=== PATIENT | female | born 1970 | race Caucasian/White ===

== ENCOUNTER → 2017-03-12 15:22 | Outpatient (CLI) | payer BC, SELFPAY ==
[2017-03-12 16:26] LABS: Free Thyroxine Index 3.7 ug/dL (5.93-13.13); T4 (Thyroxine) 11.2 ug/dl (4.7-13.3); Thyroid Stimulating Hormone 1.27 uIU/ml (0.358-3.740); Triiodothryronine (T3) Uptake 33 % (31-39)
== END ==
PROVIDERS: Visit Provider Nurse Practitioner Obstetrics & Gynecology
DX: E03.9 Hypothyroidism, unspecified (principal); R53.82 Chronic fatigue, unspecified
CPT/HCPCS: 36415; 84436; 84443; 84479

== ENCOUNTER 2017-03-16 07:11 | Day surgery (SDC) | payer BC, SELFPAY ==
[2017-03-13 10:47] VITALS: BP 144/85; PULSE 83; RESP 20; TEMP 36.7; O2SAT 98; BMI 34.0
[2017-03-16] VITALS (10 sets, daily range): BP systolic 114–144; BP diastolic 77–92; PULSE 83–93; RESP 12–28; TEMP 36.6; O2SAT 95–100
[2017-03-16 08:00] LABS: Urine Pregnancy, HCG Qual. Negative (Negative)
--- NOTE | 2017-03-16 08:37 | SUR.PREOP ---
patient up to bathroom then returned to bay safely. patient stable with no s/s of distress noted.
--- NOTE | 2017-03-16 09:45 | HMH.PROC ---
[facility] Procedure Note Procedure Note:: Colonoscopy Procedure Report: Colonoscopy with cold snare polypectomy Endoscopist: Robert Bernabe II, MD Referring physician: Linda ALEXIS Date of Procedure: March 16, 2017 Equipment: Olympus 180 variable stiffness pediatric colonoscope Sedation: Fentanyl 200 mg IV/ Versed 9 mg IV Indication: Mrs. Hsieh is a 46-year-old female who is here for initial screening colonoscopy. She had a paternal first cousin with colon cancer in her 40s. Her maternal grandmother had colon cancer in her mid 60s. Her paternal grandfather had prostate cancer. The patient did have some hemorrhoidal bleeding a year ago. She does have some bowel irregularity with IBS and states that she alternates with constipation and then loose bowel movements. She does get some abdominal discomfort with this. She reports no change in bowel habits or weight loss. Procedure: Prior to the procedure, a history and physical exam was performed, and patient's medications and allergies were reviewed. The risks, benefits and alternatives of the sedation and procedure were discussed with the patient. All questions were answered and informed consent was obtained. The patient was brought to the procedure room. Patient identification and proposed procedure were verified by the physician and the nurse. The patient was placed in a left lateral decubitus position and the scope was passed under direct vision. Throughout the procedure, the patient's blood pressure, pulse, and oxygen saturations were monitored continuously. The colonoscopy was accomplished without difficulty. The patient tolerated the procedure well. Findings: On digital rectal examination there was normal rectal tone. There were no external hemorrhoids. The colonoscope was introduced through the anal canal to the rectum and advanced to the cecum. The ileocecal valve and appendiceal orifice were identified. The scope was advanced a short distance into the ileum which appeared grossly normal. The scope was then withdrawn into the colon. There were 2 colon polyps identified in the sigmoid ?1 and rectosigmoid ?1. These ranged in size from 5 and 8 mm and were all removed via cold snare polypectomy. There were scattered diverticuli throughout the descending and sigmoid colon (LEFT colon). The rectum itself was normal. Upon retroflexion within the rectum there were grade 1 internal hemorrhoids. Impression: 1. Colonic polyps ?2 2. Left-sided diverticulosis 3. Grade 1 internal hemorrhoids Plan: I will follow up the polyp pathology and recommend repeat colonoscopy again in 5 years based upon the polyp histology. I would encourage dietary measures, probiotic therapy and fiber supplementation on a long-term daily maintenance basis.
--- NOTE | 2017-03-16 09:48 | P.PCN_ITS ---
[facility] Procedure Note Procedure Note:: Colonoscopy Procedure Report: Colonoscopy with cold snare polypectomy Endoscopist: Robert Bernabe II, MD Referring physician: Linda AELXIS Date of Procedure: March 16, 2017 Equipment: Olympus 180 variable stiffness pediatric colonoscope Sedation: Fentanyl 200 mg IV/ Versed 9 mg IV Indication: Mrs. Hsieh is a 46-year-old female who is here for initial screening colonoscopy. She had a paternal first cousin with colon cancer in her 40s. Her maternal grandmother had colon cancer in her mid 60s. Her paternal grandfather had prostate cancer. The patient did have some hemorrhoidal bleeding a year ago. She does have some bowel irregularity with IBS and states that she alternates with constipation and then loose bowel movements. She does get some abdominal discomfort with this. She reports no change in bowel habits or weight loss. Procedure: Prior to the procedure, a history and physical exam was performed, and patient' s medications and allergies were reviewed. The risks, benefits and alternatives of the sedation and procedure were discussed with the patient. All questions were answered and informed consent was obtained. The patient was brought to the procedure room. Patient identification and proposed procedure were verified by the physician and the nurse. The patient was placed in a left lateral decubitus position and the scope was passed under direct vision. Throughout the procedure, the patient's blood pressure, pulse, and oxygen saturations were monitored continuously. The colonoscopy was accomplished without difficulty. The patient tolerated the procedure well. Findings: On digital rectal examination there was normal rectal tone. There were no external hemorrhoids. The colonoscope was introduced through the anal canal to the rectum and advanced to the cecum. The ileocecal valve and appendiceal orifice were identified. The scope was advanced a short distance into the ileum which appeared grossly normal. The scope was then withdrawn into the colon. There were 2 colon polyps identified in the sigmoid ?1 and rectosigmoid ?1. These ranged in size from 5 and 8 mm and were all removed via cold snare polypectomy. There were scattered diverticuli throughout the descending and sigmoid colon (LEFT colon). The rectum itself was normal. Upon retroflexion within the rectum there were grade 1 internal hemorrhoids. Impression: 1. Colonic polyps ?2 2. Left-sided diverticulosis 3. Grade 1 internal hemorrhoids Plan: I will follow up the polyp pathology and recommend repeat colonoscopy again in 5 years based upon the polyp histology. I would encourage dietary measures, probiotic therapy and fiber supplementation on a long-term daily maintenance basis.
== END 2017-03-16 10:45 | disposition home or self-care (01) ==
LOC: OUTP 07:12
PROVIDERS: PCP Nurse Practitioner; Visit Provider Internal Medicine Gastroenterology
PROC: 0DJD8ZZ Inspection of Lower Intestinal Tract, Via Natural or Artificial Opening Endoscopic (ICD-10-PCS; CPT 45378; principal; 2017-03-16 08:00)
DX: Z12.11 Encounter for screening for malignant neoplasm of colon (principal); K63.5 Polyp of colon; K57.30 Diverticulosis of large intestine without perforation or abscess without bleeding; K64.0 First degree hemorrhoids
CPT/HCPCS: 45380; 81025; 99152

== ENCOUNTER → 2017-07-19 07:51 | Outpatient (CLI) | payer BC, SELFPAY ==
[2017-07-19 09:08] LABS: Free T4 (Free Thyroxine) 1.29 ng/dl (0.76-1.46); Thyroid Stimulating Hormone 1.98 uIU/ml (0.358-3.740)
== END ==
PROVIDERS: PCP Nurse Practitioner; Visit Provider Nurse Practitioner Obstetrics & Gynecology
DX: E06.3 Autoimmune thyroiditis (principal); E03.9 Hypothyroidism, unspecified; I34.1 Nonrheumatic mitral (valve) prolapse; I10 Essential (primary) hypertension
CPT/HCPCS: 84439; 84443

== ENCOUNTER → 2017-10-26 13:48 | Outpatient (CLI) | payer BC, SELFPAY ==
--- NOTE | 2017-10-26 13:54 | US_ITS ---
US thyroid HISTORY: ITS.REASON: HASHIMOTOS DISEASE ORDERING PHYSICIAN: Xiomara Kaplan PATIENT AGE: 47 years Comparison: None FINDINGS: The right lobe measures 4.8 x 1.3 x 1.7 cm. There is heterogeneous echogenicity as before with no discrete nodule. The left lobe measures 3.9 x 1.1 x 1.2 cm also showing heterogeneous echogenicity. No discrete nodule. The isthmus has an unremarkable appearance. IMPRESSION: Mildly enlarged thyroid gland with heterogeneous echogenicity. No discrete mass. No significant change
== END ==
PROVIDERS: PCP Nurse Practitioner; Visit Provider Nurse Practitioner
DX: E06.3 Autoimmune thyroiditis (principal)
CPT/HCPCS: 76536

== ENCOUNTER → 2017-10-29 19:00 | Outpatient (REF) | payer BC, SELFPAY ==
[2017-11-02 07:02] LABS: Neisseria gonorrhoeae, NAA Negative (Negative)
== END ==
LOC: LAB 19:00
PROVIDERS: Visit Provider Nurse Practitioner Obstetrics & Gynecology
DX: N72 Inflammatory disease of cervix uteri (principal)
CPT/HCPCS: 87491; 87591

== ENCOUNTER → 2018-02-08 13:03 | Outpatient (CLI) | payer BC, SELFPAY ==
[2018-02-08 16:33] LABS: Free Thyroxine Index 3.3 ug/dL (5.93-13.13); T4 (Thyroxine) 10.4 ug/dl (4.7-13.3); Thyroid Stimulating Hormone 1.51 uIU/ml (0.358-3.740); Triiodothryronine (T3) Uptake 32 % (31-39)
[2018-02-09 14:02] LABS: Vitamin D 25 Hydroxy 74.3 ng/mL (30.0-100.0)
[2018-02-09 14:03] LABS: Estradiol <5.0 pg/mL (.); FSH 25.5 mIU/mL (.); Triiodothyronine (T3) Free 3.4 pg/mL (2.0-4.4)
[2018-02-10 12:09] LABS: Anti-Centromere B Antibodies <0.2 AI (0.0-0.9); Anti-Jo-1 <0.2 AI (0.0-0.9); Anti-Smith Antibody <0.2 AI (0.0-0.9); Antichromatin Antibodies 0.2 AI (0.0-0.9); Antiscleroderma-70 Antibodies <0.2 AI (0.0-0.9); RNP Antibodies 0.3 AI (0.0-0.9); Sjogren's Anti-SS-A <0.2 AI (0.0-0.9); Sjogren's Anti-SS-B <0.2 AI (0.0-0.9)
[2018-02-10 21:28] LABS: Anti-DNA (DS) Ab Qn 8 IU/mL (0-9)
== END ==
PROVIDERS: PCP Nurse Practitioner; Visit Provider Nurse Practitioner Obstetrics & Gynecology
DX: E03.9 Hypothyroidism, unspecified (principal); E06.3 Autoimmune thyroiditis; N95.1 Menopausal and female climacteric states; R53.82 Chronic fatigue, unspecified
CPT/HCPCS: 36415; 82652; 82670; 83001; 83002; 84436; 84443; 84479; 84481; 86225; 86235

== ENCOUNTER → 2018-02-20 13:22 | Outpatient (CLI) | payer BC, SELFPAY | PROVIDERS: PCP Nurse Practitioner; Visit Provider Nurse Practitioner Obstetrics & Gynecology | DX: R68.89 Other general symptoms and signs (principal) | CPT/HCPCS: 87275; 87276 ==

== ENCOUNTER → 2018-02-22 13:09 | Outpatient (CLI) | payer BC, SELFPAY ==
--- NOTE | 2018-02-22 13:23 | XR_ITS ---
XR foot wt bearing RT 3V HISTORY: Right foot pain ITS.REASON: pain ORDERING PHYSICIAN: Bela Fallon DPM PATIENT AGE: 47 years COMPARISON: None FINDINGS: No fracture or dislocation. No lytic or blastic change. There is normal mineralization.. The joint spaces are well-preserved. No significant degenerative/arthritic changes. No erosive changes evident. IMPRESSION: Negative, no acute finding
--- NOTE | 2018-02-22 13:23 | XR_ITS ---
XR foot wt bearing LT 3V HISTORY: Bilateral foot pain, left foot pain ITS.REASON: pain ORDERING PHYSICIAN: Bela Fallon DPM PATIENT AGE: 47 years COMPARISON: None FINDINGS: No fracture or dislocation. No lytic or blastic change. There is normal mineralization.. The joint spaces are well-preserved. No significant degenerative/arthritic changes. No erosive changes evident. There is a small calcaneal spur IMPRESSION: Negative, no acute finding
== END ==
PROVIDERS: PCP Family Medicine; Visit Provider Podiatrist
DX: M79.672 Pain in left foot (principal); M79.671 Pain in right foot
CPT/HCPCS: 73630

== ENCOUNTER → 2018-07-18 07:27 | Outpatient (CLI) | payer BC, SELFPAY ==
[2018-07-18 09:11] LABS: Free T4 (Free Thyroxine) 1.11 ng/dl (0.76-1.46); T4 (Thyroxine) 9.5 ug/dl (4.7-13.3); Thyroid Stimulating Hormone 0.13 uIU/ml (0.358-3.740); Triiodothryronine (T3) Uptake 32 % (31-39)
[2018-07-19 07:35] LABS: Estradiol <5.0 pg/mL (.); FSH 33.1 mIU/mL (.); LH 33.3 mIU/mL (.); Triiodothyronine (T3) Free 3.4 pg/mL (2.0-4.4)
[2018-07-24 03:27] LABS: Anti-DNA (DS) Ab Qn 7; RNP Antibodies 0.3
[2018-07-24 03:28] LABS: Anti-Centromere B Antibodies <0.2; Anti-Jo-1 <0.2; Anti-Smith Antibody <0.2; Antichromatin Antibodies 0.2; Antiscleroderma-70 Antibodies <0.2; Sjogren's Anti-SS-A <0.2; Sjogren's Anti-SS-B <0.2
[2018-07-24 03:29] LABS: Antinuclear Antibodies (ANA) NEGATIVE
== END ==
PROVIDERS: Visit Provider Nurse Practitioner Obstetrics & Gynecology
DX: E06.3 Autoimmune thyroiditis (principal); E78.5 Hyperlipidemia, unspecified; I10 Essential (primary) hypertension; I34.1 Nonrheumatic mitral (valve) prolapse; R06.02 Shortness of breath
CPT/HCPCS: 36415; 82652; 82670; 83001; 83002; 84436; 84439; 84443; 84479; 84481; 86038; 86225; 86235

== ENCOUNTER → 2018-07-22 16:34 | Outpatient (CLI) | payer BC, SELFPAY ==
--- NOTE | 2018-07-22 16:39 | XR_ITS ---
EXAM: XR cervical spine 5V HISTORY: ITS.REASON: HASHIMOTOS DISEAS, ACUTE LEFT SHOULDER PAIN, NECK PAIN ORDERING PHYSICIAN: Xiomara Kaplan APRN PATIENT AGE: 47 years COMPARISON: None FINDINGS: Normal alignment. No fracture or dislocation. No lytic or blastic change. No significant degenerative change. The disc spaces are preserved. IMPRESSION: No acute finding
--- NOTE | 2018-07-22 16:39 | XR_ITS ---
XR shoulder LT min 2V HISTORY: ITS.REASON: HASHIMOTOS DISEAS, ACUTE LEFT SHOULDER PAIN, NECK PAIN ORDERING PHYSICIAN: Xiomara Kaplan APRN PATIENT AGE: 47 years Comparison: None FINDINGS: No fracture or dislocation. No lytic or blastic change. There is normal mineralization. The joint spaces are well-preserved. No significant degenerative/arthritic changes. No erosive changes evident. IMPRESSION: Negative, no acute finding
== END ==
PROVIDERS: PCP Nurse Practitioner; Visit Provider Nurse Practitioner
DX: M25.512 Pain in left shoulder (principal); M54.2 Cervicalgia; R53.83 Other fatigue; R60.1 Generalized edema; E06.3 Autoimmune thyroiditis
CPT/HCPCS: 72050; 73030

== ENCOUNTER → 2018-07-25 08:36 | Outpatient (CLI) | payer BC, SELFPAY ==
--- NOTE | 2018-07-25 08:40 | XR_ITS ---
XR ankle wt bearing LT min 3V HISTORY: ITS.REASON: pain ORDERING PHYSICIAN: Bela Fallon DPM PATIENT AGE: 47 years Comparison: None FINDINGS: No fracture or dislocation. No lytic or blastic change. There is normal mineralization.. The joint spaces are well-preserved. No significant degenerative/arthritic changes. No erosive changes evident. IMPRESSION: Negative ankle, no acute finding
== END ==
PROVIDERS: PCP Nurse Practitioner; Visit Provider Podiatrist
DX: M79.605 Pain in left leg (principal)
CPT/HCPCS: 73610

== ENCOUNTER → 2018-08-07 08:11 | Outpatient (CLI) | payer BC, SELFPAY ==
--- NOTE | 2018-08-07 08:12 | MR_ITS ---
MR ankle LT wo/w con CLINICAL INDICATION: Medial ankle pain, soft tissue mass ITS.REASON: soft tissue mass ORDERING PHYSICIAN: Bela Fallon DPM PATIENT AGE: 47 years Comparison: 07/25/2018 TECHNIQUE: Multiplanar multiecho sequences are performed without and with gadolinium enhancement. A marker is placed along the medial aspect of the ankle and reported area of the soft tissue mass. Pre- and postenhanced fat sat images show no obvious soft tissue mass. There is a prominent vascular structure at this area which may be related to a prominent draining vein or varicosities. This is directly deep to the placed marker. No other enhancing structures are identified. Hypointensity is present at the distal aspect of the posterior tibialis tendon and its insertion on the navicular with an apparent enlargement area of the tendon here. This may only be related to partial volume averaging from the posterior tibialis tendon, sprain ligament, and tibial navicular ligament which may give the appearance of the thickened posterior distal tibialis tendon. If there is clinical suspicion of posterior tibial pathology then dedicated foot MRI may be of further value. No fracture or dislocation. The talar dome has an unremarkable appearance. No ligamentous abnormalities. IMPRESSION: 1. Palpable abnormality corresponds to a prominent penetrating vein 2. Thickened appearance of the distal aspect of the posterior tibialis tendon which may represent artifact from that tendon, spring ligament, and tibionavicular ligament which can cause this pseudothickening.
== END ==
PROVIDERS: PCP Nurse Practitioner; Visit Provider Podiatrist
DX: M25.579 Pain in unspecified ankle and joints of unspecified foot (principal); R22.42 Localized swelling, mass and lump, left lower limb
CPT/HCPCS: 73723; A9576

== ENCOUNTER → 2018-12-12 08:01 | Outpatient (CLI) | payer BC, SELFPAY ==
[2018-12-12 08:23] LABS: Basophils # 0.1 K/mm3 (0-0.2); Basophils % 0.6 % (0.1-2.0); Eosinophils # 0.1 K/mm3 (0.0-0.4); Eosinophils % 1.2 % (0.1-12.0); Hemoglobin 14.4 g/dL (12.2-16.2); Lymphocytes % 27.2 % (10-50); Mean Corpuscular HGB Conc 32.1 g/dL (31.8-35.4); Mean Corpuscular Volume 87.4 fl (81-99); Mean Platelet Volume 7.8 fl (7.4-10.4); Monocytes # 0.3 K/mm3 (0.1-1.0); Monocytes % 4.3 % (1.7-9.3); Neutrophils # 4.9 K/mm3 (1.8-7.8); Neutrophils % 66.6 % (37.0-80.0); Platelet Count 355 K/mm3 (142-424); Red Blood Count 5.14 M/mm3 (4.20-5.40); Red Cell Distribution Width 12.8 % (11.5-17.5); White Blood Count 7.3 K/mm3 (4.8-10.8)
[2018-12-12 10:07] LABS: Alanine Aminotransferase 14 U/L (12-78); Albumin Level 3.5 gm/dL (3.4-5.0); Albumin/Globulin Ratio 0.9 (1.1-1.8); Alkaline Phosphatase 81 U/L (46-116); Anion Gap 14.1 mEq/L (5-15); Aspartate Amino Transferase 8 U/L (15-37); Bilirubin,Total 0.4 mg/dL (0.2-1.0); Blood Urea Nitrogen 14 mg/dL (7-18); Calcium 9.8 mg/dL (8.5-10.1); Carbon Dioxide 25 mmol/L (21.0-32.0); Chloride 105 mmol/L (98-107); Cholesterol 175 mg/dL (140-200); Estimated Glomerular Filt Rate 90 ml/min (>60); GFR (African American) 109 ML/MIN (>60); Globulin 3.8 gm/dl (1.3-3.2); Glucose 98 mg/dL (74-106); HDL Cholesterol 44 mg/dL (29-89); LDL Cholesterol 91 mg/dL (0-130); Potassium 4.1 mmoL/L (3.5-5.1); Sodium 140 mmol/L (136-145); Total Protein,Serum 7.3 gm/dL (6.4-8.2); Triglycerides 200 mg/dL (30-200); VLDL Cholesterol 40 mg/dL (0-40)
[2018-12-12 10:18] LABS: Free T4 (Free Thyroxine) 1.25 ng/dl (0.76-1.46); Thyroid Stimulating Hormone 0.39 uIU/ml (0.358-3.740)
[2018-12-13 06:09] LABS: Prolactin 23.9 ng/mL (4.8-23.3)
[2018-12-13 07:40] LABS: Estradiol <5.0 pg/mL (.); FSH 33.1 mIU/mL (.); LH 24.9 mIU/mL (.)
== END ==
PROVIDERS: Otolaryngology; Visit Provider Nurse Practitioner Obstetrics & Gynecology
DX: N95.1 Menopausal and female climacteric states (principal); E03.9 Hypothyroidism, unspecified; E78.5 Hyperlipidemia, unspecified; R53.83 Other fatigue; E06.3 Autoimmune thyroiditis; R59.9 Enlarged lymph nodes, unspecified; M54.2 Cervicalgia
CPT/HCPCS: 36415; 80053; 80061; 82670; 83001; 83002; 84146; 84439; 84443; 85025

== ENCOUNTER → 2018-12-26 13:19 | Outpatient (CLI) | payer BC, SELFPAY ==
[2018-12-26 14:36] LABS: Monoscreen (Rapid) Negative (Negative)
== END ==
PROVIDERS: Visit Provider Nurse Practitioner Obstetrics & Gynecology
DX: R50.9 Fever, unspecified (principal); R51 Headache; R53.83 Other fatigue; R59.9 Enlarged lymph nodes, unspecified
CPT/HCPCS: 36415; 86318

== ENCOUNTER → 2018-12-27 08:41 | Outpatient (CLI) | payer BC, SELFPAY ==
--- NOTE | 2018-12-27 08:42 | MR_ITS ---
PROCEDURE: MR HEAD/BRAIN WO/W CON CLINICAL INDICATION: Pituitary Adenoma Galactorrhea, headache, visual changes with fatigue COMPARISON: No exams were available for comparison TECHNIQUE: Routine multiplanar multi echo sequences are performed without and with gadolinium enhancement.. Additional thin section pre and post dynamic enhanced images are obtained of the pituitary in the coronal plane FINDINGS: No midline shift, mass effect, intracranial hemorrhage, or hydrocephalus is evident. No evidence of acute infarction. The cerebellopontine angles, cerebellum, and brainstem are unremarkable. There is normal tucker-white matter differentiation with no abnormal white matter signal intensity apparent. No enhancing lesions are evident. The hippocampal gyri are unremarkable in the temporal horns are symmetric. Dynamic enhanced images of the pituitary initially show decreased intensity in the central to slightly left aspect of the pituitary gland. This becomes more even with the rest of the pituitary gland on the delayed images. This area measures approximately 4 mm. There is mild deviation of the pituitary stalk and there is mild prominence of the pituitary gland with a superior convex margin. No other significant anomalies are evident. IMPRESSION: Mildly prominent pituitary gland with superior convex margin. The initial dynamic enhanced images suggest a small area of non enhancement inferiorly and on the left. This is of questionable clinical significance but could be due to small microadenoma at 4 mm. Recommend six-month follow-up to confirm stability. Dictated by: Pedrito Becker MD 12/27/2018 16:51 Electronically signed by Pedrito Becker MD in [place] 12/28/2018 08:50
--- NOTE | 2018-12-27 10:13 | HMH.ITSHM ---
Current Home Medications as stated by this patient Elda Hsieh or security representative. []BISOPROLOL LEVOTHYROXINE ASPIRIN VITAMIN B12 OMPRAZOLE
== END ==
PROVIDERS: PCP Nurse Practitioner; Visit Provider Nurse Practitioner Obstetrics & Gynecology
DX: D35.2 Benign neoplasm of pituitary gland (principal); E22.9 Hyperfunction of pituitary gland, unspecified
CPT/HCPCS: 70553; A9576

== ENCOUNTER → 2019-06-20 09:34 | Outpatient (CLI) | payer BC, SELFPAY ==
--- NOTE | 2019-06-20 09:44 | CA_ITS ---
APPROVED REPORT Left Lower Extremity Venous Study for DVT. Typing Teacher: CT Indications DVT of Lower Extremity: Left Vein Imaging CFV (L): compressive, spontaneous, phasic, augmentation SFJ (L): compressive, spontaneous, phasic, augmentation FEM (L): compressive, spontaneous, phasic, augmentation POP (L): compressive, spontaneous, phasic, augmentation DFV (L): compressive, spontaneous, phasic, augmentation PTV (L): compressive, spontaneous, phasic, augmentation GSV (L): compressive, spontaneous, phasic, augmentation SSV (L): compressive, spontaneous, phasic, augmentation Peroneals (L):compressive, spontaneous, phasic, augmentation GAS (L): compressive, spontaneous, phasic, augmentation Findings LLE negative for DVT/SVT. Vessels fully compressible. No reflux noted Conclusion No evidence of DVT or superficial thrombophlebitis in the veins scanned of the left lower extremity. Electronically signed by : Pedrito Becker MD 06/20/2019 17:08:55
== END ==
PROVIDERS: PCP Family Medicine; Visit Provider Nurse Practitioner Obstetrics & Gynecology
DX: M79.662 Pain in left lower leg (principal)
CPT/HCPCS: 93971

== ENCOUNTER → 2019-08-20 07:41 | Outpatient (CLI) | payer BC, SELFPAY ==
[2019-08-20 08:21] LABS: Basophils # 0.6 K/mm3 (0-0.2); Basophils % 6.5 % (0.1-2.0); Eosinophils # 0.1 K/mm3 (0.0-0.4); Eosinophils % 1.6 % (0.1-12.0); Hematocrit 47.5 % (37.0-47.0); Lymphocytes # 2.9 K/mm3 (0.7-4.5); Lymphocytes % 33.8 % (10-50); Mean Corpuscular HGB Conc 31.6 g/dL (31.8-35.4); Mean Corpuscular Hemoglobin 29.8 pg (27.0-31.2); Mean Corpuscular Volume 94.5 fl (81-99); Mean Platelet Volume 11.2 fl (7.4-10.4); Monocytes # 0.4 K/mm3 (0.1-1.0); Monocytes % 4.2 % (1.7-9.3); Neutrophils # 5.1 K/mm3 (1.8-7.8); Neutrophils % 60.5 % (37.0-80.0); Platelet Count 329 K/mm3 (142-424); Red Blood Count 5.03 M/mm3 (4.20-5.40); White Blood Count 8.5 K/mm3 (4.8-10.8)
[2019-08-20 10:24] LABS: Chloride 103 mmol/L (98-107); Potassium 4.4 mmoL/L (3.5-5.1); Sodium 136 mmol/L (136-145)
[2019-08-20 10:27] LABS: Alanine Aminotransferase 20 U/L (12-78); Albumin Level 4.2 g/dl (3.5-5.0); Albumin/Globulin Ratio 1.3 (1.1-1.8); Alkaline Phosphatase 79 U/L (38-126); Anion Gap 14.4 mEq/L (5-15); Aspartate Amino Transferase 25 U/L (14-36); Bilirubin,Total 0.6 mg/dl (0.2-1.3); Blood Urea Nitrogen 16 mg/dl (7-17); Calcium 10.4 mg/dl (8.4-10.2); Carbon Dioxide 23 mmol/L (22.0-30.0); Cholesterol 195 mg/dl (140-200); Estimated Glomerular Filt Rate 90 ml/min (>60); GFR (African American) 109 ML/MIN (>60); Globulin 3.3 g/dL (1.3-3.2); Glucose 95 mg/dl (74-100); Total Protein,Serum 7.5 g/dl (6.3-8.2); Triglycerides 404 mg/dl (30-150)
[2019-08-20 10:28] LABS: Chol/HDL Ratio 4.2 (1-3.5); HDL Cholesterol 46 mg/dl (40-60)
[2019-08-20 10:39] LABS: Direct LDL Cholesterol 102.08 mg/dL (100-129)
[2019-08-20 10:46] LABS: Free T4 (Free Thyroxine) 1.16 ng/dl (0.78-2.19)
[2019-08-20 10:55] LABS: Coronavirus 19 IgG Antibody Negative (Negative); Coronavirus 19 IgM Antibody Negative (Negative)
[2019-08-20 11:00] LABS: Thyroid Stimulating Hormone 2.83 uIU/mL (0.465-4.68)
[2019-08-21 09:57] LABS: Prolactin 25.9 ng/mL (4.8-23.3)
[2019-08-21 11:34] LABS: Estradiol <5.0 pg/mL (.); FSH 31.9 mIU/mL (.); LH 29.3 mIU/mL (.)
== END ==
PROVIDERS: PCP Nurse Practitioner Family; Visit Provider Nurse Practitioner Obstetrics & Gynecology
DX: E06.3 Autoimmune thyroiditis (principal); E03.9 Hypothyroidism, unspecified; N64.52 Nipple discharge; R53.82 Chronic fatigue, unspecified
CPT/HCPCS: 36415; 80053; 80061; 82670; 83001; 83002; 84146; 84439; 84443; 85025; 86328

== ENCOUNTER → 2019-08-22 08:41 | Outpatient (CLI) | payer BC, SELFPAY | PROVIDERS: PCP Family Medicine; Visit Provider Nurse Practitioner Family | DX: R06.02 Shortness of breath (principal); I34.0 Nonrheumatic mitral (valve) insufficiency; I34.1 Nonrheumatic mitral (valve) prolapse | CPT/HCPCS: 93306 ==

== ENCOUNTER → 2020-03-26 08:07 | Outpatient (CLI) | payer BC, SELFPAY ==
[2020-03-26 09:06] LABS: Basophils % 0.9 % (0.1-2.0); Eosinophils # 0.1 K/mm3 (0.0-0.4); Eosinophils % 1.5 % (0.1-12.0); Hematocrit 42.2 % (37.0-47.0); Hemoglobin 13.7 g/dL (12.2-16.2); Lymphocytes # 1.9 K/mm3 (0.7-4.5); Lymphocytes % 40.6 % (10-50); Mean Corpuscular HGB Conc 32.6 g/dL (31.8-35.4); Mean Corpuscular Hemoglobin 28.1 pg (27.0-31.2); Mean Corpuscular Volume 86.3 fl (81-99); Mean Platelet Volume 7.6 fl (7.4-10.4); Monocytes # 0.3 K/mm3 (0.1-1.0); Monocytes % 5.2 % (1.7-9.3); Neutrophils # 2.5 K/mm3 (1.8-7.8); Neutrophils % 51.8 % (37.0-80.0); Platelet Count 302 K/mm3 (142-424); Red Blood Count 4.89 M/mm3 (4.20-5.40); Red Cell Distribution Width 12.8 % (11.5-17.5); White Blood Count 4.7 K/mm3 (4.8-10.8)
[2020-03-26 09:25] LABS: Chloride 106 mmol/L (98-107); Sodium 141 mmol/L (136-145)
[2020-03-26 09:26] LABS: Alanine Aminotransferase 42 U/L (12-78); Alkaline Phosphatase 96 U/L (38-126); Aspartate Amino Transferase 40 U/L (14-36); Bilirubin,Direct 0.2 mg/dl (0.0-0.4); Bilirubin,Indirect 0.4 mg/dL (0.0-0.9); Bilirubin,Total 0.6 mg/dl (0.2-1.3); Bilirubin,Unconjugated 0.4 mg/dL (0.0-1.1)
[2020-03-26 09:26] LABS: Potassium 4.6 mmoL/L (3.5-5.1)
[2020-03-26 09:27] LABS: Albumin Level 4.3 g/dl (3.5-5.0); Chol/HDL Ratio 4.9 (1-3.5); Cholesterol 190 mg/dl (140-200); HDL Cholesterol 39 mg/dl (40-60); Total Protein,Serum 7.7 g/dl (6.3-8.2); Triglycerides 390 mg/dl (30-150); VLDL Cholesterol 78 mg/dL (0-40)
[2020-03-26 09:28] LABS: Alanine Aminotransferase 43 U/L (12-78); Albumin Level 4.4 g/dl (3.5-5.0); Albumin/Globulin Ratio 1.3 (1.1-1.8); Alkaline Phosphatase 95 U/L (38-126); Anion Gap 13.6 mEq/L (5-15); Aspartate Amino Transferase 41 U/L (14-36); Bilirubin,Total 0.7 mg/dl (0.2-1.3); Blood Urea Nitrogen 20 mg/dl (7-17); Carbon Dioxide 26 mmol/L (22.0-30.0); Estimated Glomerular Filt Rate 89 ml/min (>60); GFR (African American) 108 ML/MIN (>60); Globulin 3.4 g/dL (1.3-3.2); Glucose 106 mg/dl (74-100); Total Protein,Serum 7.8 g/dl (6.3-8.2)
[2020-03-26 09:38] LABS: Direct LDL Cholesterol 83.43 mg/dL (100-129)
[2020-03-26 09:41] LABS: Coronavirus 19 IgG Antibody Positive (Negative); Coronavirus 19 IgM Antibody Negative (Negative)
== END ==
PROVIDERS: Nurse Practitioner Obstetrics & Gynecology; Visit Provider Internal Medicine Cardiovascular Disease
DX: R07.9 Chest pain, unspecified (principal); R10.11 Right upper quadrant pain; E78.5 Hyperlipidemia, unspecified; I10 Essential (primary) hypertension
CPT/HCPCS: 36415; 80053; 80061; 80076; 85025; 86328

== ENCOUNTER → 2020-03-30 14:10 | Outpatient (CLI) | payer BC, SELFPAY | PROVIDERS: PCP Nurse Practitioner; Visit Provider Nurse Practitioner Obstetrics & Gynecology | DX: Z20.822 Contact with and (suspected) exposure to COVID-19 (principal) | CPT/HCPCS: U0003 ==

== ENCOUNTER → 2020-04-05 12:38 | Outpatient (CLI) | payer BC, SELFPAY ==
--- NOTE | 2020-04-05 12:39 | CA_ITS ---
APPROVED REPORT EXAM: Comprehensive 2D, Doppler, and color-flow Echocardiogram Executor Of Estate: Mary Melgar RVT Ht: 5 ft 3 in Wt: 200lbs BSA: 1.93 BP: 132/64 mmHg Indications: SOA,CP,HTN,HLD,OBESITY TDS 2D Dimensions LVOT 2.25 cm (M/F) 1.5-2.5 LA Volume 22.10 mL LA Volume Index 11.45 mL/m2 (M/F) 16-34 M-Mode Dimensions RVDd 2.29 cm (0.9-2.6) LA Diam 3.44 cm (1.9-4.0) LVDd 3.97 cm (3.5-5.7) Ao Diam 3.16 cm (2.0-3.7) LVDs 2.75 cm (3.5-5.7) IVSd 1.32 cm (0.6-1.1) PWd 1.00 cm (0.6-1.1) EF (Teich) 58.90% FS 30.70% EDV (Teich) 68.80 mL TAPSE 1.70 (<1.7) ESV (Teich) 28.30 mL LV Diastology E Decel Time 263.00 (160-240 msec) E/A Ratio 0.7 MED E' 10.20 (< 7 cm/sec) E'/MED E' Ratio 5.46 (>14) LAT E' 9.10 (<10 cm/sec) E/LAT E' Ratio 6.12 (>14) Aortic Valve AO Peak GR. 5.70 mmHg Mitral Valve MV E Max Arsh. 56.00 (40-130 cm/s) MV A Velocity 77.00 (40-130 cm/s) E/A Ratio 0.73 MV Decel. Time 263.00 (160-240 ms) MV PHT 77.00 ms Pulmonary Valve PV Peak Velocity 71.00 (50-150 cm/s) Left Ventricle Left atrium is mildly enlarged, left ventricle is normal size, mild concentric left ventricular hypertrophy, visually estimated ejection fraction 55% with no regional wall motion abnormality, grade 1 diastolic dysfunction seen without tissue Doppler evidence of raise left atrial pressure. Right Ventricle Right atrium and right ventricle are normal size and contractility. Aortic Valve Aortic valve is minimally thickened and fibrosed, trileaflet aortic valve, there is no aortic stenosis or aortic insufficiency. Mitral Valve Mitral valve is grossly normal, there is trace mitral regurgitation. Tricuspid Valve Tricuspid valve is grossly normal, there is trace tricuspid regurgitation, tricuspid regurgitation jet velocity is inadequate for calculation of the right ventricular systolic pressure. Pulmonic Valve Pulmonic valve is poorly visualized. Great Vessels Aortic root is normal size. Pericardium No significant pericardial effusion noted. Conclusion 1. Normal left ventricular size, preserved left ventricular systolic function, visually estimated ejection fraction 55% with no regional wall motion abnormality, grade 1 diastolic dysfunction seen without tissue Doppler evidence of raise left atrial pressure. 2. Trace mitral and tricuspid regurgitation. 3. No significant pericardial effusion noted. Electronically signed by : Dewayne Bright, 04/05/2020 21:13:39
== END ==
PROVIDERS: PCP Nurse Practitioner; Visit Provider Internal Medicine Cardiovascular Disease
DX: R07.9 Chest pain, unspecified (principal); I10 Essential (primary) hypertension; E78.2 Mixed hyperlipidemia
CPT/HCPCS: 93306

== ENCOUNTER → 2020-04-14 08:04 | Outpatient (CLI) | payer SELFPAY ==
--- NOTE | 2020-04-14 08:04 | CT_ITS ---
PROCEDURE: CT HEART W CALCIUM SCORE CLINICAL HISTORY: Non-smoker Evaluate for CAD Chest and Back pain x2wks ago >repeat/misregistration? COMPARISON: No exams were available for comparison TECHNIQUE: Axial images obtained with sagittal and coronal reformats. All CT scans at the facility use one or more dose reduction, viz: automated exposure control, ma/kV adjustment per patient size (including targeted exams where dose is matched to indication, i.e. head), or iterative reconstruction technique. FINDINGS: Coronary artery calcium score is a miramontes. Mild calcific plaque burden with moderate cardiovascular disease risk IMPRESSION: Mild calcific plaque burden with moderate cardiovascular disease risk Dictated by: Pedrito Becker MD 04/16/2020 11:16 Pedrito Becker MD in [place] 04/16/2020 11:16
== END ==
PROVIDERS: PCP Nurse Practitioner; Visit Provider Internal Medicine Cardiovascular Disease
DX: Z13.6 Encounter for screening for cardiovascular disorders (principal); R07.89 Other chest pain; E78.2 Mixed hyperlipidemia; I10 Essential (primary) hypertension
CPT/HCPCS: 75571

== ENCOUNTER → 2020-04-16 07:28 | Outpatient (CLI) | payer SELFPAY | PROVIDERS: PCP Nurse Practitioner; Visit Provider Internal Medicine Cardiovascular Disease | DX: R07.9 Chest pain, unspecified (principal) ==

== ENCOUNTER → 2020-11-03 07:37 | Outpatient (CLI) | payer BC, SELFPAY ==
[2020-11-03 08:18] LABS: Basophils # 0.1 K/mm3 (0-0.2); Basophils % 1.2 % (0.1-2.0); Eosinophils # 0.1 K/mm3 (0.0-0.4); Eosinophils % 1.4 % (0.1-12.0); Hematocrit 44.8 % (37.0-47.0); Hemoglobin 14.8 g/dL (12.2-16.2); Lymphocytes # 2.3 K/mm3 (0.7-4.5); Lymphocytes % 38.3 % (10-50); Mean Corpuscular Hemoglobin 28.7 pg (27.0-31.2); Mean Platelet Volume 7.3 fl (7.4-10.4); Monocytes # 0.4 K/mm3 (0.1-1.0); Monocytes % 5.8 % (1.7-9.3); Neutrophils # 3.2 K/mm3 (1.8-7.8); Neutrophils % 53.4 % (37.0-80.0); Platelet Count 304 K/mm3 (142-424); Red Blood Count 5.15 M/mm3 (4.20-5.40); White Blood Count 6.1 K/mm3 (4.8-10.8)
[2020-11-03 08:59] LABS: Alanine Aminotransferase 32 U/L (12-78); Albumin Level 4.2 g/dl (3.5-5.0); Alkaline Phosphatase 138 U/L (38-126); Anion Gap 15.9 mEq/L (5-15); Aspartate Amino Transferase 28 U/L (14-36); Bilirubin,Direct 0.1 mg/dl (0.0-0.4); Bilirubin,Indirect 0.3 mg/dL (0.0-0.9); Bilirubin,Total 0.4 mg/dl (0.2-1.3); Bilirubin,Unconjugated 0.3 mg/dL (0.0-1.1); Blood Urea Nitrogen 21 mg/dl (7-17); Calcium 10.2 mg/dl (8.4-10.2); Carbon Dioxide 25 mmol/L (22.0-30.0); Chloride 104 mmol/L (98-107); Chol/HDL Ratio 5.2 (1-3.5); Cholesterol 188 mg/dl (140-200); Estimated Glomerular Filt Rate 89 ml/min (>60); GFR (African American) 108 ML/MIN (>60); Glucose 110 mg/dl (74-100); HDL Cholesterol 36 mg/dl (40-60); Potassium 3.9 mmoL/L (3.5-5.1); Sodium 141 mmol/L (136-145); Total Protein,Serum 7.6 g/dl (6.3-8.2); Triglycerides 413 mg/dl (30-150)
[2020-11-03 09:10] LABS: C-Reactive Protein 2.3 mg/L (0-4); Direct LDL Cholesterol 98.72 mg/dL (100-129)
[2020-11-03 09:17] LABS: 25-OH Vitamin D, Total 52.2 ng/mL (30-100)
[2020-11-03 09:30] LABS: Thyroid Stimulating Hormone 3.96 uIU/mL (0.465-4.68)
[2020-11-03 09:47] LABS: Vitamin B12 446 pg/mL (239-931)
[2020-11-03 10:00] LABS: Fibrinogen 325 mg/dL (229.9-363.5)
[2020-11-03 10:46] LABS: Hemoglobin A1C 5.8 % (4.0-6.0)
[2020-11-03 22:26] LABS: Free T4 (Free Thyroxine) 1.44 ng/dl (0.78-2.19)
[2020-11-04 08:32] LABS: DHEA-Sulfate 20.1 ug/dL (41.2-243.7); Progesterone <0.1 ng/mL (.); Prolactin 19.7 ng/mL (4.8-23.3)
[2020-11-04 14:19] LABS: Anti-Centromere B Antibodies <0.2 AI (0.0-0.9); Anti-DNA (DS) Ab Qn 4 IU/mL (0-9); Anti-Jo-1 <0.2 AI (0.0-0.9); Anti-Smith Antibody <0.2 AI (0.0-0.9); Antichromatin Antibodies <0.2 AI (0.0-0.9); Antiscleroderma-70 Antibodies <0.2 AI (0.0-0.9); RNP Antibodies 0.2 AI (0.0-0.9); Sjogren's Anti-SS-A <0.2 AI (0.0-0.9); Sjogren's Anti-SS-B <0.2 AI (0.0-0.9)
[2020-11-06 00:07] LABS: Estrogen 70 pg/mL (.)
[2020-11-07 16:36] LABS: Testosterone, Total, LC/MS 32.8 ng/dL (.); Testosterone,Free 0.9 pg/mL (0.0-4.2)
== END ==
PROVIDERS: Nurse Practitioner Obstetrics & Gynecology; Visit Provider Internal Medicine
DX: D89.89 Other specified disorders involving the immune mechanism, not elsewhere classified (principal); E03.9 Hypothyroidism, unspecified; E06.3 Autoimmune thyroiditis; E78.5 Hyperlipidemia, unspecified; I10 Essential (primary) hypertension; I34.0 Nonrheumatic mitral (valve) insufficiency; I34.1 Nonrheumatic mitral (valve) prolapse; R53.82 Chronic fatigue, unspecified
CPT/HCPCS: 36415; 80048; 80061; 80076; 82306; 82533; 82607; 82626; 82672; 83036; 84144; 84146; 84402; 84403; 84439; 84443; 85025; 85384; 86140; 86225; 86235

== ENCOUNTER → 2020-11-14 14:16 | Outpatient (CLI) | payer BC, SELFPAY ==
[2020-11-14 14:35] LABS: Influenza A, PCR Not Detected (NotDetected); Influenza B, PCR Not Detected (NotDetected)
[2020-11-14 15:20] LABS: Coronavirus 19, PCR Detected (NotDetected)
== END ==
PROVIDERS: PCP Family Medicine; Visit Provider Nurse Practitioner Obstetrics & Gynecology
DX: Z20.822 Contact with and (suspected) exposure to COVID-19 (principal); U07.1 COVID-19
CPT/HCPCS: C9803; U0003; U0005

== ENCOUNTER 2020-11-19 09:40 | Emergency (ER) | payer BC, SELFPAY ==
[2020-11-19] VITALS (14 sets, daily range): BP systolic 100–182; BP diastolic 52–118; PULSE 63–91; RESP 16–20; TEMP 36.7–36.8; O2SAT 90–95; BMI 35.4
--- NOTE | 2020-11-19 10:05 | XR_ITS ---
PROCEDURE: XR CHEST PORTABLE CLINICAL HISTORY: cough, covid+ COMPARISON: No exams were available for comparison FINDINGS: The cardiomediastinal silhouette and pulmonary vascularity are within normal limits. There are faint patchy areas of increased density in the left midlung and right mid lower lung zone which may be seen with early or mild Covid19 pneumonia. No effusions. No acute bony abnormalities. IMPRESSION: Faint bilateral infiltrates which may be seen with Covid19 pneumonia Dictated by: Pedrito Becker MD 11/19/2020 10:27 Pedrito Becker MD in [place] 11/19/2020 10:27
[2020-11-19 10:12] LABS: Basophils % 0.3 % (0.1-2.0); Eosinophils % 0.1 % (0.1-12.0); Hematocrit 43.5 % (37.0-47.0); Hemoglobin 14.7 g/dL (12.2-16.2); Lymphocytes # 0.9 K/mm3 (0.7-4.5); Lymphocytes % 15.9 % (10-50); Mean Corpuscular HGB Conc 33.9 g/dL (31.8-35.4); Mean Corpuscular Hemoglobin 29.2 pg (27.0-31.2); Mean Corpuscular Volume 86.3 fl (81-99); Mean Platelet Volume 9.4 fl (7.4-10.4); Monocytes # 0.1 K/mm3 (0.1-1.0); Monocytes % 2.4 % (1.7-9.3); Neutrophils # 4.7 K/mm3 (1.8-7.8); Neutrophils % 81.4 % (37.0-80.0); Platelet Count 213 K/mm3 (142-424); Red Blood Count 5.03 M/mm3 (4.20-5.40); Red Cell Distribution Width 13.5 % (11.5-17.5); White Blood Count 5.8 K/mm3 (4.8-10.8)
[2020-11-19 10:20] LABS: Chloride 104 mmol/L (98-107); Potassium 4.1 mmoL/L (3.5-5.1); Sodium 138 mmol/L (136-145)
[2020-11-19 10:22] LABS: Alanine Aminotransferase 63 U/L (12-78); Aspartate Amino Transferase 77 U/L (14-36); Blood Urea Nitrogen 22 mg/dl (7-17); Creatinine Clearance Estimated 162 mL/min (50-200); Estimated Glomerular Filt Rate 106 ml/min (>60); GFR (African American) 129 ML/MIN (>60)
[2020-11-19 10:23] LABS: Albumin Level 4.1 g/dl (3.5-5.0); Alkaline Phosphatase 129 U/L (38-126); Anion Gap 14.1 mEq/L (5-15); Bilirubin,Total 0.5 mg/dl (0.2-1.3); Calcium 9.8 mg/dl (8.4-10.2); Carbon Dioxide 24 mmol/L (22.0-30.0); Globulin 4.1 g/dL (1.3-3.2); Glucose 138 mg/dl (74-100); Total Protein,Serum 8.2 g/dl (6.3-8.2)
--- NOTE | 2020-11-19 10:38 | HMH.EDWEAK ---
ED Disposition Clinical Impression: COVID-19, Emma's thyroiditis Disposition: Home, Self-Care Condition on Discharge: Good Instructions: DI for COVID-19 (Suspected or Confirmed ) Additional Instructions: please follow up with pcp Prescriptions: dexAMETHasone [Decadron] 6 mg PO DAILY #7 tab Transmission Status: Pending to [id number] ondansetron HCL [Zofran 4mg Tab] 4 mg PO TID #30 tab Transmission Status: Pending to [id number] Referrals: Michael Dawn MD [Primary Care Provider] - - Critical Care Critical Care Time: No Attestation: On 11/19/20, the high probability of a clinically significant, sudden or life threatening deterioration of the following system(s) required my full and direct attention, intervention and personal management. The time I documented below is in addition to time spent performing reported procedures but includes the following listed in this critical care notation. Medical Decision Making - Medical Records Medical records reviewed: Yes: I reviewed the patient's medical records. - Carlyle Inquiry Pt receiving controlled substance: No Vital Signs: 11/19/20 09:41 11/19/20 10:00 Temperature 98.0 F Temperature Source Oral Pulse Rate 82 Pulse Rate [Right Radial] 81 Respiratory Rate 18 16 Blood Pressure 100/73 L Blood Pressure [Right Arm] 109/70 L Blood Pressure Mean 79 Blood Pressure Mean [Right Arm] 83 Blood Pressure Source [Right Arm] Automatic Cuff Blood Pressure Position [Right Arm] Sitting 02 Sat by Pulse Oximetry 91 L 92 L Oxygen Delivery Method Room Air - Lab Data Lab results reviewed: Yes: I reviewed the patient's lab results. Lab Results 11/19/20 10:00: WBC 5.8, RBC 5.03, Hgb 14.7, Hct 43.5, MCV 86.3, MCH 29.2, MCHC 33.9, RDW 13.5, Plt Count 213, MPV 9.4, Neut % (Auto) 81.4 H, Lymph % (Auto) 15.9, [place] % (Auto) 2.4, Eos % (Auto) 0.1, Baso % (Auto) 0.3, Neut # (Auto) 4.7, Lymph # (Auto) 0.9, [place] # (Auto) 0.1, Eos # (Auto) 0.0, Baso # (Auto) 0.0 11/19/20 10:00: Sodium 138, Potassium 4.1, Chloride 104, Carbon Dioxide 24, Anion Gap 14.1, BUN 22 H, Creatinine 0.60, Estimated Creat Clear 162, Estimated GFR 106, Est GFR ( Amer) 129, Glucose 138 H, Calcium 9.8, Total Bilirubin 0.5, AST 77 H, ALT 63, Alkaline Phosphatase 129 H, Total Protein 8.2, Albumin 4.1, Globulin 4.1 H, Albumin/Globulin Ratio 1.0 L Result diagrams: 11/19/20 10:00 11/19/20 10:00 Orders (Tests/Meds): ED MEDICATIONS Generic Name Dose Route Start Last Admin Trade Name Freq PRN Reason Stop Dose Admin Diphenhydramine HCl 25 mg 11/19/20 11:00 Diphenhydramine 50mg/Ml Vial IV 11/19/20 16:00 ONCE PRN INFUSION REACTION Hydrocortisone Sodium Succinate 100 mg 11/19/20 11:00 Hydrocortisone Sod Succinate 100mg Vial IV 11/19/20 16:00 ONCE PRN INFUSION REACTION Sodium Chloride 1,000 mls @ 100 mls/hr 11/19/20 11:00 Sod Chlor 0.9% 1000ml Bag IV 11/19/20 16:00 .Q10H PRN INFUSION REACTION Loratadine 10 mg 11/19/20 11:00 Loratadine 10mg Tablet PO 11/19/20 16:00 ONCE PRN INFUSION REACTION Discontinued Medications Generic Name Dose Route Start Last Admin Trade Name Freq PRN Reason Stop Dose Admin Sodium Chloride 1,000 mls @ 999 mls/hr 11/19/20 10:15 11/19/20 10:06 Sod Chlor 0.9% 1000ml Bag IV 11/19/20 11:15 999 mls/hr .Q1H1M VIVIENNE Administration Casirivimab/Imdevimab 10 ml/ 110 mls @ 220 mls/hr 11/19/20 11:00 11/19/20 11:35 Sodium Chloride IV 11/19/20 11:29 220 mls/hr ONCE ONE Administration - Radiology Data #1 Image(s): Chest Image Reviewed: Yes I have reviewed radiologist's interpretation Preliminary Findings: Abnormal Medical Decision Narrative: has covid-19 but stable at this time - will give regen -kimberly at this time Weakness HPI - General Chief complaint: Weakness Stated complaint: dehydrated, covid pos Time Seen by Provider: 11/19/20 10:38 Mode of Arri
--- NOTE | 2020-11-19 11:28 | PC.NURSE ---
MD Juan talking to Dr Dawn
--- NOTE | 2020-11-19 11:35 | PC.NURSE ---
Regen Cov infusion began at this time
== END 2020-11-19 13:25 | disposition home or self-care (01) ==
PROVIDERS: Emergency Provider Emergency Medicine; PCP Family Medicine
DX: U07.1 COVID-19 (principal); E06.3 Autoimmune thyroiditis; I10 Essential (primary) hypertension; E78.5 Hyperlipidemia, unspecified; Z79.899 Other long term (current) drug therapy
CPT/HCPCS: 71045; 80053; 85025; 96365; 96367; 99283

== ENCOUNTER 2020-11-24 09:36 | Emergency (ER) | payer BC, SELFPAY ==
[2020-11-24 09:37] VITALS: BP 129/86; PULSE 119; RESP 19; TEMP 36.9; O2SAT 90; BMI 35.4
--- NOTE | 2020-11-24 09:46 | HMH.EDGENADL ---
ED Disposition Clinical Impression: Pneumonia due to COVID-19 virus, Hypoxia Disposition: Home, Self-Care Condition on Discharge: Fair Instructions: DI for COVID-19 (Suspected or Confirmed ) Additional Instructions: Oxygen as arranged, 2 L/min. Follow-up with Dr. Dawn in his office on Sunday. Return to the emergency department if increasing shortness of breath. COVID-19 Isolation: Isolate yourself for a MINIMUM of 10 days: What to do: Monitor your symptoms. If you have an emergency warning sign (including trouble breathing), seek emergency medical care immediately. Stay in a separate room from other household members, if possible. Use a separate bathroom, if possible. Avoid contact with other members of the household and pets. Don?t share personal household items, like cups, towels, and utensils. Wear a mask when around other people if able. You can be around others AFTER: 10 days since symptoms first appeared AND 24 hours with no fever without the use of fever-reducing medications AND Other symptoms of COVID-19 are improving Referrals: Michael Dawn MD [Primary Care Provider] - - Critical Care Critical Care Time: No Attestation: On 11/24/20, the high probability of a clinically significant, sudden or life threatening deterioration of the following system(s) required my full and direct attention, intervention and personal management. The time I documented below is in addition to time spent performing reported procedures but includes the following listed in this critical care notation. Medical Decision Making - Carlyle Inquiry Pt receiving controlled substance: No Vital Signs: 11/24/20 09:37 11/24/20 10:00 11/24/20 11:11 Temperature 98.4 F Temperature Source Oral Pulse Rate 113 H 108 H Pulse Rate [Right Radial] 119 H Respiratory Rate 19 20 Blood Pressure 141/96 H 133/84 Blood Pressure [Right Arm] 129/86 Blood Pressure Mean Blood Pressure Mean [Right Arm] 100 Blood Pressure Source [Right Arm] Automatic Cuff Blood Pressure Position [Right Arm] Sitting 02 Sat by Pulse Oximetry 90 L 92 L 92 L Oxygen Delivery Method Room Air Oxygen Flow Rate (LPM) 11/24/20 11:30 Temperature Temperature Source Pulse Rate 107 H Pulse Rate [Right Radial] Respiratory Rate 20 Blood Pressure 132/92 H Blood Pressure [Right Arm] Blood Pressure Mean 102 Blood Pressure Mean [Right Arm] Blood Pressure Source [Right Arm] Blood Pressure Position [Right Arm] 02 Sat by Pulse Oximetry 94 L Oxygen Delivery Method Nasal Cannula Oxygen Flow Rate (LPM) 2 - Lab Data Lab Results 11/24/20 09:50: WBC 8.2, RBC 4.81, Hgb 13.8, Hct 40.7, MCV 84.6, MCH 28.6, MCHC 33.8, RDW 12.9, Plt Count 488 H, MPV 8.2, Neut % (Auto) 85.3 H, Lymph % (Auto) 10.1, Jay % (Auto) 3.7, Eos % (Auto) 0.4, Baso % (Auto) 0.6, Neut # (Auto) 7.0, Lymph # (Auto) 0.8, Jay # (Auto) 0.3, Eos # (Auto) 0.0, Baso # (Auto) 0.1, Total Counted 100, Neutrophils % (Manual) 86 H, Lymphocytes % (Manual) 10, Monocytes % (Manual) 4, Platelet Estimate Slight increase, RBC Morphology Normal 11/24/20 09:50: Sodium 133 L, Potassium 3.7, Chloride 102, Carbon Dioxide 22, Anion Gap 12.7, BUN 9, Creatinine 0.50 L, Estimated Creat Clear 195, Estimated GFR 131, Est GFR ( Amer) 159, Glucose 134 H, Calcium 9.9, Total Bilirubin 0.9, AST 54 H, ALT 54, Alkaline Phosphatase 118, Total Protein 7.8, Albumin 3.7, Globulin 4.1 H, Albumin/Globulin Ratio 0.9 L 11/24/20 09:50: ESR 27 H 11/24/20 09:50: C-Reactive Protein 191.8 H Result diagrams: 11/24/20 09:50 11/24/20 09:50 Orders (Tests/Meds): ED MEDICATIONS Generic Name Dose Route Start Last Admin Trade Name Freq PRN Reason Stop Dose Admin Sodium Chloride 1,000 mls @ 100 mls/hr 11/24/20 10:15 11/24/20 11:04 Sod Chlor 0.9% 1000ml Bag IV 12/24/20 10:14 100 mls/hr .Q10H VIVIENNE Administration Discontinued Medications Generic Name Dose Route Start Last Admin
[2020-11-24 10:00] VITALS: BP 141/96; PULSE 113; RESP 20; O2SAT 92
--- NOTE | 2020-11-24 10:00 | XR_ITS ---
PROCEDURE: XR CHEST PORTABLE CLINICAL HISTORY: covid 19, soa COMPARISON: CR XR CHEST PORTABLE from 11/19/[address] ANGIO CHEST PE PROTOCOL from 11/24/2020 FINDINGS: The cardiomediastinal silhouette and pulmonary vascularity are within normal limits. Multifocal bilateral ground-glass infiltrates are present in both upper and lower lung zones consistent with Covid19 pneumonia. No effusions and no evidence of pneumothorax or pneumomediastinum. No acute bony abnormalities. IMPRESSION: Multifocal infiltrates consistent with Covid19 pneumonia Dictated by: Pedrito Becker MD 11/24/2020 11:36 Pedrito Becker MD in [facility] 11/24/2020 11:36
--- NOTE | 2020-11-24 10:00 | CT_ITS ---
PROCEDURE: CT ANGIO CHEST PE PROTOCOL CLINCIAL INDICATION: covid 19, soa, r/o PE COMPARISON: No exams were available for comparison TECHNIQUE: IV Contrast: 70ML Isovue 370 x 2 Axial images obtained with sagittal and coronal reformats. All CT scans at the facility use one or more dose reduction, viz: automated exposure control, ma/kV adjustment per patient size (including targeted exams where dose is matched to indication, i.e. head), or iterative reconstruction technique. FINDINGS: Initial images showed poor opacification the pulmonary arteries. The exam was then repeated with slightly greater pulmonary artery opacification. The peripheral pulmonary arteries however are not well opacified. There is no evidence of pulmonary embolus. No evidence of aortic aneurysm or dissection. There is a small hiatal hernia. Multifocal bilateral ground-glass infiltrates are present in both upper and lower lobes and right middle lobe consistent with Covid19 pneumonia. There are trace bilateral effusions. No evidence of pneumothorax or pneumomediastinum. The numerous infiltrates could obscure an underlying nodule.. No acute bony findings. Small nodes are present in the periportal region Hepatic steatosis. IMPRESSION: Multifocal ground-glass opacities bilaterally consistent with Covid19 pneumonia. No obvious pulmonary embolus. Peripheral pulmonary arteries are not well opacified. Dictated by: Pedrito Becker MD 11/24/2020 11:33 Pedrito Becker MD in [facility] 11/24/2020 11:33
[2020-11-24 10:17] LABS: Basophils # 0.1 K/mm3 (0-0.2); Basophils % 0.6 % (0.1-2.0); Eosinophils % 0.4 % (0.1-12.0); Hematocrit 40.7 % (37.0-47.0); Hemoglobin 13.8 g/dL (12.2-16.2); Lymphocytes # 0.8 K/mm3 (0.7-4.5); Lymphocytes % 10.1 % (10-50); Mean Corpuscular HGB Conc 33.8 g/dL (31.8-35.4); Mean Corpuscular Hemoglobin 28.6 pg (27.0-31.2); Mean Corpuscular Volume 84.6 fl (81-99); Mean Platelet Volume 8.2 fl (7.4-10.4); Monocytes # 0.3 K/mm3 (0.1-1.0); Monocytes % 3.7 % (1.7-9.3); Neutrophils % 85.3 % (37.0-80.0); Platelet Count 488 K/mm3 (142-424); Red Blood Count 4.81 M/mm3 (4.20-5.40); Red Cell Distribution Width 12.9 % (11.5-17.5); White Blood Count 8.2 K/mm3 (4.8-10.8)
[2020-11-24 10:23] LABS: MANUAL DIFFERENTIAL MANUAL DIFFERENTIAL (MANUAL DIFF)
[2020-11-24 10:32] LABS: Alanine Aminotransferase 54 U/L (12-78); Albumin Level 3.7 g/dl (3.5-5.0); Albumin/Globulin Ratio 0.9 (1.1-1.8); Alkaline Phosphatase 118 U/L (38-126); Anion Gap 12.7 mEq/L (5-15); Aspartate Amino Transferase 54 U/L (14-36); Bilirubin,Total 0.9 mg/dl (0.2-1.3); Blood Urea Nitrogen 9 mg/dl (7-17); Calcium 9.9 mg/dl (8.4-10.2); Carbon Dioxide 22 mmol/L (22.0-30.0); Chloride 102 mmol/L (98-107); Creatinine Clearance Estimated 195 mL/min (50-200); Estimated Glomerular Filt Rate 131 ml/min (>60); GFR (African American) 159 ML/MIN (>60); Globulin 4.1 g/dL (1.3-3.2); Glucose 134 mg/dl (74-100); Potassium 3.7 mmoL/L (3.5-5.1); Sodium 133 mmol/L (136-145); Total Protein,Serum 7.8 g/dl (6.3-8.2)
--- NOTE | 2020-11-24 10:35 | PC.NURSE ---
pt in CT
--- NOTE | 2020-11-24 10:49 | PC.NURSE ---
pt going back to ct to be reinjected
--- NOTE | 2020-11-24 11:01 | PC.NURSE ---
Pt returned from rad.
--- NOTE | 2020-11-24 11:02 | PC.NURSE ---
pt return from CT
[2020-11-24 11:03] LABS: Lymphocytes % 10 % (10-50); Monocytes % 4 % (2-9); Neutrophils % 86 % (42-76); RBC Morphology Normal; Total Cells Counted 100
[2020-11-24 11:04] LABS: Platelet Estimate Slight Increase
[2020-11-24 11:11] VITALS: BP 133/84; PULSE 108; O2SAT 92
--- NOTE | 2020-11-24 11:25 | PC.NURSE ---
pt SaO2 frequently dropping to 89% on RA ER MD ordered O2 at 2L per NC
[2020-11-24 11:30] VITALS: BP 132/92; PULSE 107; RESP 20; O2SAT 91; O2SAT 94
--- NOTE | 2020-11-24 11:50 | PC.NURSE ---
RAFAT TONY speaking with Dr. Dawn
[2020-11-24 12:12] LABS: C-Reactive Protein 191.8 mg/L (0-4)
--- NOTE | 2020-11-24 12:41 | SW/DCPLANNER ---
Addendum entered by Leona Villarreal 11/24/20 13:29: Macy with [employer] has stated that patient information/order has been reviewed and will be delivered to ED. Original Note: Patient information/order has been faxed to [facility] for home O2 and portable tank at 2-5L. I will follow up with [employer] once patient information is reviewed.
--- NOTE | 2020-11-24 12:46 | PC.NURSE ---
care management is arranging home oxygen for pt
--- NOTE | 2020-11-24 13:25 | PC.NURSE ---
Calling Dr Dawn
--- NOTE | 2020-11-24 13:28 | PC.NURSE ---
speaking with Dr Dawn
[2020-11-24 13:41] LABS: Erythrocyte Sedimentation Rate 27 mm/hr (0-20)
[2020-11-24 14:29] VITALS: BP 155/110; PULSE 108; RESP 19; TEMP 37; O2SAT 91
--- NOTE | 2020-11-24 14:30 | PC.NURSE ---
pt waiting on her ride
== END 2020-11-24 15:07 | disposition home or self-care (01) ==
PROVIDERS: Emergency Provider Emergency Medicine; PCP Family Medicine
DX: U07.1 COVID-19 (principal); J12.82 Pneumonia due to coronavirus disease 2019; E03.9 Hypothyroidism, unspecified; E78.5 Hyperlipidemia, unspecified; I10 Essential (primary) hypertension; Z79.899 Other long term (current) drug therapy
CPT/HCPCS: 71045; 71275; 80053; 85007; 85025; 85651; 86140; 96365; 96375; 99283; J2405; Q9967

== ENCOUNTER → 2020-12-23 15:55 | Outpatient (CLI) | payer BC, SELFPAY ==
--- NOTE | 2020-12-23 15:59 | XR_ITS ---
PROCEDURE: XR KUB CLINICAL INDICATION: hematuria/back pain COMPARISON: No exams were available for comparison FINDINGS: Gas pattern-The bowel gas pattern is unremarkable. No obvious obstruction. Calcifications-No abnormal calcifications are evident. No obvious renal or ureteral calculi. Bones-No acute bony anomalies evident. Surgical clips are present in the upper pelvic region on the right. IMPRESSION: No acute findings. Dictated by: Pedrito Becker MD 12/24/2020 07:26 Pedrito Becker MD in [facility] 12/24/2020 07:26
== END ==
PROVIDERS: PCP Family Medicine; Visit Provider Urology
DX: M54.9 Dorsalgia, unspecified (principal); R31.9 Hematuria, unspecified
CPT/HCPCS: 74018

== ENCOUNTER → 2020-12-30 06:26 | Outpatient (CLI) | payer BC, SELFPAY ==
--- NOTE | 2020-12-30 06:28 | NM_ITS ---
APPROVED REPORT Exam: Nuclear Stress Test Indication: HTN, HYPERLIPIDEMIA, FM HX, C.P., SOB, FATIGUE Patient Location: Outpatient Stress Tech: Karin Stephens PA Tech:Kaycee CorderoSORIN RT(R)(N) Ht: 5 ft 3 in Wt: 215 lbs Bra Size: 42DD HR: 76 bpm BP: 127/80 mmHg BSA: 1.99 m2 BMI: 38.0 Procedure: Patient exercised on Kip protocol 7:16 minutes and sec, resting heart rate 76 bpm, resting blood pressure 127/80 mmHg, with exercise maximum heart rate achived was 152 bpm which is 89 % of the maximum predicted heart rate and blood pressure was 184/82 mmHg. Test was stopped due to SOA, FATIGUE. Patient denied any complaint of chest pain. Patient has good exercise capacity, achieved 10.1 METs of workload on treadmill, the blood pressure response to exercise was Adequate. Electrocardiogram Resting electrocardiogram showed sinus rhythm, with exercise there is less than 1.[address] segment depression noted from the baseline EKG. The EKG portion of the exercise Myoview is negative for ischemia. Cardiac Stress and Resting SPECT Images: Cardiac Stress and Resting SPECT images were obtained using technetium 99m Myoview 30.9 mCi stress and 10.90 mCi at rest. Gated SPECT for analysis of segmental wall motion and calculation of the ejection fraction also done. Prone images were also obtained. Cardiac stress and rest SPECT images show uniform myocardial activity without segmental perfusion abnormality, compared right ejection fraction is over 65% with no regional wall motion abnormality, right ventricle is normal size and contractility. Conclusion: 1. The EKG portion of the exercise Myoview is negative for ischemia, patient has good exercise capacity achieved 10.1 METs of workload on treadmill, the blood pressure response to exercise was adequate, there was no exercise-induced chest discomfort. 2. No scintigraphic evidence of reversible ischemia seen, computer derived ejection fraction is over 65% with no regional wall motion abnormality, right ventricle is normal size and contractility. 3. Normal exercise Myoview study. Electronically signed by : Dewayne Bright MD 12/30/2020 14:03:22
--- NOTE | 2020-12-30 06:28 | CA_ITS ---
APPROVED REPORT EXAM: Comprehensive 2D, Doppler, and color-flow Echocardiogram Paper Sheeter: Jennie Dorsey, RCS, RVS Ht: 5 ft 3 in Wt: 219lbs BSA: 2.01 BP: 137/86 mmHg Indications: CP, SOB, [id number], HTN, HLD 2D Dimensions Aortic Root 3.27 cm F: 2.7 - 3.3 Left Atrium 2.82 cm F: 2.7 - 3.8 LVOT 1.89 cm (M/F) 1.5-2.5 M-Mode Dimensions RVDd 2.08 cm (0.9-2.6) LA Diam 3.41 cm (1.9-4.0) LVDd 4.70 cm (3.5-5.7) Ao Diam 3.09 cm (2.0-3.7) LVDs 2.62 cm (3.5-5.7) IVSd 1.15 cm (0.6-1.1) PWd 1.08 cm (0.6-1.1) EF (Teich) 75.50% EPSs 0.32 cm FS 44.30% EDV (Teich) 102.40 mL TAPSE 2.48 (<1.7) ESV (Teich) 25.10 mL LV Diastology E Decel Time 257.00 (160-240 msec) E/A Ratio 0.7 MED E' 7.80 (< 7 cm/sec) MED A' 11.40 cm/s E'/MED E' Ratio 8.03 (>14) LAT E' 7.60 (<10 cm/sec) LAT A' 10.00 cm/s E/LAT E' Ratio 8.24 (>14) Aortic Valve LVOT Max 80.00 (70-110 cm/s) LVOT VTI 15.28 cm AoV Peak Arsh. 120.00 (50-130 cm/s) AO Peak GR. 5.80 mmHg AO Mean GR. 2.90 (<5 mmHg) AO VTI 19.65 (18-25 cm) SKYLAR (VTI) 2.18 (2.5-4.5 cm2) Mitral Valve MV E Max Arsh. 63.00 (40-130 cm/s) MV A Velocity 86.00 (40-130 cm/s) E/A Ratio 0.72 MV Decel. Time 257.00 (160-240 ms) MV PHT 75.00 ms Pulmonary Valve PV Peak Velocity 69.00 (50-150 cm/s) Tricuspid Valve TR P. Velocity 184.00 cm/s RAP Estimate 10.00 mmHg RVSP 23.50 mmHg Left Ventricle Left atrium is mildly enlarged, left ventricle is normal size, mild concentric left ventricular hypertrophy, visually estimated ejection fraction 55% with no regional wall motion abnormality, diastolic parameters are inconclusive in the study. Right Ventricle Right atrium and right ventricle are normal size and contractility. Aortic Valve Aortic valve is grossly normal, there is no aortic stenosis or aortic insufficiency. Mitral Valve Mitral valve is grossly normal, there is trace mitral regurgitation. Tricuspid Valve Tricuspid grossly normal, there is trace tricuspid regurgitation, tricuspid regurgitation jet velocity is inadequate for calculation of the right ventricular systolic pressure. Pulmonic Valve Pulmonic valve is poorly visualized. Great Vessels Aortic root is normal size. Inferior vena cava is normal size with normal inspiratory collapse. Pericardium No significant pericardial effusion noted. Conclusion 1. Normal left ventricular size, preserved left ventricular systolic function, visually estimated ejection fraction 55% with no regional wall motion abnormality, diastolic parameters are inconclusive. 2. Trace mitral and tricuspid regurgitation. 3. No significant pericardial effusion noted. 4. Inferior vena cava is normal size with normal inspiratory collapse. Electronically signed by : Dewayne Bright MD 12/30/2020 15:27:08
--- NOTE | 2020-12-30 06:28 | CT_ITS ---
PROCEDURE: CT CHEST WO CON CLINICAL INDICATION: cp/dyspnea COMPARISON: CT CT ANGIO CHEST PE PROTOCOL from 11/24/2020 TECHNIQUE: Axial images obtained with sagittal and coronal reformats. All CT scans at the facility use one or more dose reduction, viz: automated exposure control, ma/kV adjustment per patient size (including targeted exams where dose is matched to indication, i.e. head), or iterative reconstruction technique. FINDINGS: HEART AND MEDIASTINAL STRUCTURES: Mild coronary artery calcification. No mediastinal or hilar mass or adenopathy. LUNGS AND PLEURAL SPACES: Multifocal areas of ground-glass attenuation are present in the upper and lower lobes. The areas of dense consolidation have improved. No effusions. 3 mm noncalcified nodule is present in the left upper lobe posteriorly and laterally image 38 series 3. Small subpleural opacities left lower lobe nonspecific. BONY STRUCTURES: No acute bony abnormalities apparent. UPPER ABDOMEN: Cholelithiasis. Fatty liver ADDITIONAL FINDINGS: No other significant abnormalities. IMPRESSION: Marked improvement in the bilateral pneumonia. There remains multifocal faint areas of ground-glass infiltrate. No pulmonary fibrotic changes are apparent. There are few small subpleural nodular opacities in the 3 mm left upper lobe nodular opacity nonspecific too small to categorize. Cholelithiasis Dictated by: Pedrito Becker MD 12/30/2020 07:24 Pedrito Becker MD in [facility] 12/30/2020 07:24
--- NOTE | 2020-12-30 06:28 | CA_ITS ---
APPROVED REPORT Exam: Exercise Treadmill Technologist: Zoraida Garcia, Ht: 5 ft 3 in Wt: 215 lbs BSA: 1.99 m2 HR: 76 bpm BP: 127/80 mmHg Rhythm: NSR, slow R wave progession Indications: CP, SOA Medical History Medical History: HTN Medications: Levothyroxine,,,,, Losartan,,,,, Hydrochlorothiazide,,,,, Crestor,,,,, Montelukast,,,,, Vit D3,,,,, ProMETHAZINE,,,,, ONdanESETRON,,,,, Omepazole,,,,, Dexamethasone,,,,, BisOnprolol,,,,, CoDeine guaifenesin,,,,, Cardiac Risk Factors: HTN Stress Test Details Test: Joann HR Resting HR: 85 bpm Max Heart Rate (APMHR): 171 bpm Max HR Achieved: 152 bpm Target HR (85% APMHR): 145 bpm % of APMHR: 88 Recovery HR: 123 bpm BP Resting BP: 123/84 mmHg Max BP: 184/82 mmHg Recovery BP: 178.0/84.0 mmHg ECG Resting ECG: NSR, slow R wave progression Clinical Exercise duration: 07:16 min Highest Stage Achieved: Exercise capacity: 10.1 METs Stress ECG Conclusion Pt exercised total of 7:16 on joann protocol. No CP noted. Rare PVC noted. Normal ST response exercise. Normal GXT, myoview images reported separately. Electronically signed by : Dewayne Bright MD 12/30/2020 10:33:05
== END ==
LOC: RAD 06:28
PROVIDERS: PCP Family Medicine; Visit Provider Urology
DX: R06.02 Shortness of breath (principal); R07.9 Chest pain, unspecified; I10 Essential (primary) hypertension; E78.2 Mixed hyperlipidemia
CPT/HCPCS: 71250; 78452; 93017; 93306; A9502

== ENCOUNTER → 2021-01-11 07:57 | Outpatient (CLI) | payer BC, SELFPAY ==
[2021-01-11 08:40] VITALS: PULSE 77; PULSE 80
== END ==
PROVIDERS: PCP Family Medicine; Visit Provider Internal Medicine Pulmonary Disease
DX: U07.1 COVID-19 (principal); J12.82 Pneumonia due to coronavirus disease 2019; R09.02 Hypoxemia
CPT/HCPCS: 94060; 94618; 94640; 94727; 94729

== ENCOUNTER → 2021-01-25 12:06 | Outpatient (CLI) | payer BC, SELFPAY ==
--- NOTE | 2021-01-25 12:08 | XR_ITS ---
PROCEDURE: XR LUMBAR SPINE MIN 4V CLINICAL INDICATION: Left Lower Back Pain COMPARISON: No exams were available for comparison FINDINGS: There is normal alignment. No acute fracture or dislocation is evident. No lytic or blastic change. The joint spaces are well-preserved. No significant degenerative/arthritic changes. No erosive changes evident. Other findings:None. IMPRESSION: Negative lumbar spine Dictated by: Pedrito Becker MD 01/25/2021 15:06 Pedrito Becker MD in [facility] 01/25/2021 15:06
== END ==
PROVIDERS: PCP Family Medicine; Visit Provider Nurse Practitioner Obstetrics & Gynecology
DX: M54.50 Low back pain, unspecified (principal)
CPT/HCPCS: 72110

== ENCOUNTER → 2021-02-08 12:58 | Outpatient (CLI) | payer BC, SELFPAY ==
--- NOTE | 2021-02-08 12:58 | CT_ITS ---
PROCEDURE: CT LUMBAR SPINE WO/W CON CLINICAL HISTORY: Left Lower Back Pain COMPARISON: CR XR LUMBAR SPINE MIN 4V from 01/25/2021 TECHNIQUE: Axial images obtained with sagittal and coronal reformats. All CT scans at the facility use one or more dose reduction, viz: automated exposure control, ma/kV adjustment per patient size (including targeted exams where dose is matched to indication, i.e. head), or iterative reconstruction technique. FINDINGS: There is normal alignment. No acute fracture or dislocation is evident. No bony destructive process. No lytic or blastic lesions. L2-L3: Minimal bulging disc. L3-L4: Bulging disc with small central disc protrusion along with facet and ligamentum hypertrophic changes with bilateral lateral recess narrowing. L4-5: Minimal bulging disc with mild facet and ligamentum hypertrophy. L5-S1: Minimal bulging disc. There is mild bony hypertrophy along the posterior and mid aspect of the right SI joint. No enhancing lesions apparent. No paraspinal mass Colonic diverticulosis. Surgical clips in the right pelvic region. IMPRESSION: Mild lumbar spondylosis as described above. No enhancing lesions. No bony destruction. Mild sclerosis along the mid aspect of the right SI joint posteriorly consistent with underlying degenerative change Dictated by: Pedrito Becker MD 02/09/2021 12:47 Pedrito Becker MD in [facility] 02/09/2021 12:47
== END ==
PROVIDERS: PCP Family Medicine; Visit Provider Nurse Practitioner Obstetrics & Gynecology
DX: M54.50 Low back pain, unspecified (principal); G89.29 Other chronic pain
CPT/HCPCS: 72133; Q9967

== ENCOUNTER 2021-03-01 07:55 | Outpatient (RCR) | payer BC, SELFPAY ==
--- NOTE | 2021-03-01 08:50 | HMH.PTOPEV ---
PT Outpatient Evaluation Rehab PT Outpatient Evaluation Start: 03/01/21 08:03 Freq: Status: Active Protocol: Document 03/01/21 08:37 EDWARD (Rec: 03/01/21 08:50 PHORNE [id number]) Electronically Signed By Gaurav Hernandez, PT 03/01/21 08:37 Outpatient Therapy Subjective History Subjective History Pt is 50 yowf who presents with c/o pain in the L side low back x ~ 5-6 mos with insidious onset of symptoms. She reports pain is burning and intermittent. She states, It hurt all night last night, but it doesn't urt today at all. She reports no c/o numbness or tingling or radicular pain patterns. She had lumbar CT which showed lumbar DDD and minimal disc bulges throughout. She has PMH of HTN, HL, R salpingo- oophorectomy. Chief Complaint Pain Symptom Type Burning Symptoms Relieved By OTC Meds Prior Functional Limitations None Current Functional Limitations None Symptom Description Intermittent Level of pain today (0-10) 0 Pain scale - at its worst (0-10) 10 Lumbopelvic Eval Posture Thoracic Spine Posture Standing Position Neutral Lumbar Spine Posture Standing Position Neutral Gait Observation General Gait Pattern Observation No Deviations/Normal Range of Motion Lumbar Spine Active Flexion Range of 0-65 Motion (degrees) Lumbar Spine Active Extension Range of 0-25 Motion (degrees) Left Lumbar Spine Lateral Flexion Active 0-20 Range of Motion (degrees) Right Lumbar Spine Lateral Flexion 0-20 Active Range of Motion (degrees) Lumbar Spine ROM Reason Not Measured Within Functional Limits Manual Muscle Test Bilateral Knee Extension Strength Grade 5 Normal Knee Flexion Strength Grade 5 Normal Hip Flexion Strength Grade 5 Normal Hip Abduction Strength Grade 5 Normal Hip Adduction Strength Grade 5 Normal Hip External Rotation Strength Grade 5 Normal Hip Internal Rotation Strength Grade 5 Normal Hip Extension Strength Grade 5 Normal Gluteus Richard Strength Grade 5 Normal Extensor Hallucis Longus Strength Grade 5 Normal Ankle Dorsiflexion Strength Grade 5 Normal Gastronemius/Soleus Strength Grade 5 Normal Special Tests Lumbar Spine Screen Negative Forward Bending Test- Standing Negative Left,Negative Right Forward Bending Test- Sitting Negative Left,Negative Right Hip Scouring (Quadrant) Test Negativ
== END 2021-03-01 07:59 | disposition home or self-care (01) ==
LOC: PT 07:55
PROVIDERS: PCP Family Medicine; Visit Provider Family Medicine
DX: M54.59 Other low back pain (principal)
CPT/HCPCS: 97163

== ENCOUNTER → 2021-03-11 09:36 | Outpatient (CLI) | payer BC, SELFPAY ==
--- NOTE | 2021-03-11 09:40 | CT_ITS ---
FINAL REPORT CLINICAL HISTORY: LT FLANK PAIN since October 2020, DIVERTICULOSIS FINDINGS: CT OF THE ABDOMEN AND PELVIS WITH CONTRAST Axial CT images of the abdomen and pelvis were obtained after the administration of oral and iv contrast. Coronal reformatted images were also obtained and reviewed.This study was performed with techniques to keep radiation doses as low as reasonably achievable (ALARA). Individualized dose reduction techniques using automated exposure control or adjustment of mA and/or kV according to the patient's size were employed. Abdomen: There is mild bibasilar atelectasis. The heart is normal in size. The liver has an unremarkable appearance, without evidence of mass or biliary ductal dilatation. There are multiple gallstones in the gallbladder. The spleen is unremarkable. No adrenal mass is present. The pancreas has an unremarkable appearance. There are less than 1 cm bilateral renal masses which are likely small cysts. The aorta is normal in caliber. There is no free fluid or adenopathy. No abnormal fluid collection is seen. Pelvis: The appendix not seen. The urinary bladder is unremarkable. There is descending and sigmoid diverticulosis without evidence of diverticulitis. There is a focus of soft tissue in the medial right pelvis measuring 29 x 19 mm. This is seen in the region of the tip of the cecum and probably just superior to the right ovary. Several surgical clips are seen in this region. This is of uncertain etiology, could represent postoperative changes however neoplasm isn't excluded. There are several bilateral right lower quadrant lymph nodes measuring up to 12 mm which are nonspecific. There is no evidence of bowel obstruction. IMPRESSION: Descending and sigmoid diverticulosis without evidence of diverticulitis. Focus of soft tissue in the medial right pelvis of uncertain etiology, could represent postoperative changes however neoplasm not excluded. Follow-up CT may be helpful. Bilateral less than 1 cm renal masses, likely small cysts. Cholelithiasis. Reviewed, Interpreted and Dictated by Gian Vasquez III, MD Transcribed by Ana Maria Jasmine Authenticated by Gian Vasquez III, MD on 03/11/2021 10:59:59 AM [facility]
== END ==
LOC: RAD 09:37
PROVIDERS: PCP Family Medicine; Visit Provider Family Medicine
DX: R10.9 Unspecified abdominal pain (principal); K57.90 Diverticulosis of intestine, part unspecified, without perforation or abscess without bleeding
CPT/HCPCS: 74177; Q9967

== ENCOUNTER → 2021-03-16 10:56 | Outpatient (CLI) | payer BC, SELFPAY ==
--- NOTE | 2021-03-16 10:56 | US_ITS ---
FINAL REPORT CLINICAL HISTORY: medial right pelvis measuring 29 x 19 mm pt states hx of rt ov tube and appendix removed 2011-- llq pain-- recent ct showed this area COMPARISON: CT dated March 11, 2021 FINDINGS: Transvaginal sonographic images of the pelvis were obtained. The uterus measures 5.8 x 2.8 x 4.0 cm. The endometrium measures 2 mm, which is within normal limits. There are multiple hypoechoic fibroids in the uterus measuring up to 1.9 cm. The right ovary has been surgically removed. There is a 1.9 cm structure in the right adnexal region which might be related to remnant ovarian tissue. The left ovary measures 2 cm in length. Normal blood flow seen to the left ovary. There is no evidence of free fluid. IMPRESSION: Multiple hypoechoic fibroids in the uterus measuring up to 1.9 cm. Hypoechoic focus in the right adnexal region which may be related to some remnant ovarian tissue. No endometrial thickening. Reviewed, Interpreted and Dictated by Jd Munson MD Transcribed by Ana Maria Jasmine Authenticated by Jd Munson MD on 03/16/2021 01:29:[address] [facility]
== END ==
PROVIDERS: PCP Family Medicine; Visit Provider Nurse Practitioner Obstetrics & Gynecology
DX: R10.2 Pelvic and perineal pain (principal); N83.209 Unspecified ovarian cyst, unspecified side
CPT/HCPCS: 76830

== ENCOUNTER → 2021-07-11 07:46 | Outpatient (CLI) | payer BC, SELFPAY ==
[2021-07-11 08:57] LABS: Free T4 (Free Thyroxine) 1.16 ng/dl (0.78-2.19)
[2021-07-11 09:11] LABS: Thyroid Stimulating Hormone 3.67 uIU/mL (0.465-4.68)
[2021-07-12 08:34] LABS: Thyroid Peroxidase Antibodies 248 IU/mL (0-34); Triiodothyronine (T3) Free 3.2 pg/mL (2.0-4.4)
[2021-07-12 22:38] LABS: Thyroglobulin Level 7.6 IU/mL (0.0-0.9)
[2021-07-15 13:12] LABS: Triiodothyronine (T3) Reverse 19.6 ng/dL (9.2-24.1)
[2021-07-16 19:54] LABS: Antinuclear Antibodies (ANA) NEGATIVE
== END ==
PROVIDERS: Visit Provider Nurse Practitioner Family
DX: E06.3 Autoimmune thyroiditis (principal)
CPT/HCPCS: 36415; 84439; 84443; 84481; 84482; 86038; 86225; 86235; 86376; 86800

== ENCOUNTER → 2021-07-19 13:37 | Outpatient (CLI) | payer BC, SELFPAY ==
--- NOTE | 2021-07-19 13:42 | CT_ITS ---
FINAL REPORT TECHNIQUE: Thin section axial CT images with coronal and sagittal reformats were performed. This study was performed with techniques to keep radiation doses as low as reasonably achievable (ALARA). Individualized dose reduction techniques using automated exposure control or adjustment of mA and/or kV according to the patient''s size were employed. CLINICAL HISTORY: LT LEG PAIN,SWELLING behind left knee FINDINGS: There is no fracture or acute bony abdomen. The musculature is intact. There is a small knee joint effusion. No soft tissue mass is identified. IMPRESSION: No acute process. Reviewed, Interpreted and Dictated by Gian Vasquez III, MD Transcribed by Blanka Stein Authenticated by Gian Vasquez III, MD on 07/19/2021 03:13:06 PM [facility]
--- NOTE | 2021-07-19 14:10 | MR_ITS ---
FINAL REPORT CLINICAL HISTORY: RECURRENT LT KNEE PAIN INSTABILITY, POSTERIOR LT KNEE PAIN. posterior knee pain. knee instability. no injury or trauma. FINDINGS: Multiplanar MR imaging of the right knee was performed without contrast. There is degenerative signal in the menisci without evidence of tear. The anterior and posterior cruciate ligaments are intact. The medial collateral ligament and lateral ligamentous complex are intact. The patellar and quadriceps tendons are intact. There is no evidence of fracture. There is mild degenerative change. There is mild medial compartment chondromalacia and moderate patellar chondromalacia. A small joint effusion is seen. The musculature is intact. No soft tissue mass or cyst is identified. IMPRESSION: Degenerative signal in the menisci without evidence of tear. 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 Small joint effusion with no acute bony abnormality. Reviewed, Interpreted and Dictated by Gian Vasquez III, MD Transcribed by Ana Maria Jasmine Authenticated by Gian Vasquez III, MD on 07/19/2021 04:52:25 PM [facility]
== END ==
LOC: RAD 13:37
PROVIDERS: PCP Nurse Practitioner Family; Visit Provider Nurse Practitioner Family
DX: M79.605 Pain in left leg (principal); R22.42 Localized swelling, mass and lump, left lower limb; M25.562 Pain in left knee; M23.52 Chronic instability of knee, left knee
CPT/HCPCS: 73700; 73721

== ENCOUNTER 2021-07-22 15:02 | Outpatient (RCR) | payer BC, SELFPAY | END 2021-07-22 16:00 | disposition home or self-care (01) | LOC: PT 15:02 | PROVIDERS: Visit Provider Nurse Practitioner Family | DX: M25.562 Pain in left knee (principal); M23.52 Chronic instability of knee, left knee ==

== ENCOUNTER → 2021-08-02 07:53 | Outpatient (CLI) | payer BC, SELFPAY ==
[2021-08-02 08:30] LABS: Basophils # 0.1 K/mm3 (0-0.2); Basophils % 1.2 % (0.1-2.0); Eosinophils # 0.1 K/mm3 (0.0-0.4); Eosinophils % 1.5 % (0.1-12.0); Hematocrit 41.5 % (37.0-47.0); Hemoglobin 14.3 g/dL (12.2-16.2); Lymphocytes # 2.2 K/mm3 (0.7-4.5); Lymphocytes % 34.6 % (10-50); Mean Corpuscular HGB Conc 34.5 g/dL (31.8-35.4); Mean Corpuscular Hemoglobin 29.4 pg (27.0-31.2); Mean Corpuscular Volume 85.2 fl (81-99); Monocytes # 0.3 K/mm3 (0.1-1.0); Monocytes % 4.7 % (1.7-9.3); Neutrophils # 3.6 K/mm3 (1.8-7.8); Neutrophils % 57.9 % (37.0-80.0); Platelet Count 291 K/mm3 (142-424); Red Blood Count 4.86 M/mm3 (4.20-5.40); Red Cell Distribution Width 13.3 % (11.5-17.5); White Blood Count 6.3 K/mm3 (4.8-10.8)
[2021-08-02 08:59] LABS: Alanine Aminotransferase 25 U/L (12-78); Albumin/Globulin Ratio 1.3 (1.1-1.8); Alkaline Phosphatase 151 U/L (38-126); Anion Gap 11.6 mEq/L (5-15); Aspartate Amino Transferase 25 U/L (14-36); Blood Urea Nitrogen 24 mg/dl (7-17); Calcium 10.3 mg/dl (8.4-10.2); Carbon Dioxide 27 mmol/L (22.0-30.0); Chloride 106 mmol/L (98-107); Estimated Glomerular Filt Rate 89 ml/min (>60); GFR (African American) 108 ML/MIN (>60); Globulin 3.1 g/dL (1.3-3.2); Glucose 104 mg/dl (74-100); Potassium 4.6 mmoL/L (3.5-5.1); Sodium 140 mmol/L (136-145); Total Protein,Serum 7.1 g/dl (6.3-8.2)
[2021-08-02 09:00] LABS: Bilirubin,Total 0.1 mg/dl (0.2-1.3)
[2021-08-02 09:14] LABS: Free T4 (Free Thyroxine) 1.16 ng/dl (0.78-2.19)
[2021-08-02 09:15] LABS: 25-OH Vitamin D, Total 34.2 ng/mL (30-100)
[2021-08-02 09:28] LABS: Thyroid Stimulating Hormone 3.18 uIU/mL (0.465-4.68)
[2021-08-02 09:40] LABS: Ferritin 45.2 ng/ml (6.24-137)
[2021-08-02 09:47] LABS: Vitamin B12 615 pg/mL (239-931)
== END ==
PROVIDERS: PCP Nurse Practitioner Family; Visit Provider Nurse Practitioner Family
DX: R53.82 Chronic fatigue, unspecified (principal)
CPT/HCPCS: 36415; 80053; 82306; 82607; 82728; 84439; 84443; 85025

== ENCOUNTER 2021-08-03 09:30 | Outpatient (RCR) | payer BC, SELFPAY | END 2021-08-03 09:35 | disposition home or self-care (01) | LOC: PT 09:30 | PROVIDERS: PCP Nurse Practitioner Family; Visit Provider Nurse Practitioner Family | DX: M25.562 Pain in left knee (principal); M23.52 Chronic instability of knee, left knee; M22.42 Chondromalacia patellae, left knee | CPT/HCPCS: 97010; 97014; 97110; 97163; G0283 ==

== ENCOUNTER → 2021-08-04 16:42 | Outpatient (CLI) | payer BC, SELFPAY ==
--- NOTE | 2021-08-04 16:45 | XR_ITS ---
PROCEDURE INFORMATION: Exam: XR Left Knee Exam date and time: 08/04/2021 4:51 PM Age: 50 years old Clinical indication: Pain; Knee; Left; Additional info: Knee pain TECHNIQUE: Imaging protocol: Radiologic exam of the Left knee. Views: 4 or more views. COMPARISON: MR KNEE LT WO CON 07/19/2021 2:31 PM FINDINGS: Bones/joints: Mild joint space narrowing in the medial compartment and patellofemoral compartment consistent with degenerative changes. There is no evidence of acute fracture.There is no evidence of malalignment or dislocation. Soft tissues: Normal. IMPRESSION: 1. Mild joint space narrowing in the medial compartment and patellofemoral compartment consistent with degenerative changes. 2. There is no evidence of acute fracture.There is no evidence of malalignment or dislocation.
== END ==
PROVIDERS: PCP Nurse Practitioner Family; Visit Provider Orthopaedic Surgery
DX: M25.562 Pain in left knee (principal)
CPT/HCPCS: 73564

== ENCOUNTER → 2022-07-29 12:29 | Outpatient (CLI) | payer BC, SELFPAY ==
[2022-07-29 13:51] LABS: Alanine Aminotransferase 40 U/L (12-78); Albumin Level 4.6 g/dl (3.5-5.0); Albumin/Globulin Ratio 1.4 (1.1-1.8); Alkaline Phosphatase 129 U/L (38-126); Anion Gap 14.4 mEq/L (5-15); Aspartate Amino Transferase 39 U/L (14-36); Bilirubin,Total 0.5 mg/dl (0.2-1.3); Blood Urea Nitrogen 19 mg/dl (7-17); Calcium 10.2 mg/dl (8.4-10.2); Carbon Dioxide 27 mmol/L (22.0-30.0); Chloride 104 mmol/L (98-107); Cholesterol 221 mg/dl (140-200); Estimated Glomerular Filt Rate 106 ml/min (>60); GFR (African American) 128 ML/MIN (>60); Globulin 3.4 g/dL (1.3-3.2); Glucose 94 mg/dl (74-100); HDL Cholesterol 44 mg/dl (40-60); Potassium 4.4 mmoL/L (3.5-5.1); Sodium 141 mmol/L (136-145); Triglycerides 222 mg/dl (30-150); VLDL Cholesterol 44 mg/dL (0-40)
[2022-07-29 14:02] LABS: Direct LDL Cholesterol 126.94 mg/dL (100-129)
[2022-07-29 14:07] LABS: Free T4 (Free Thyroxine) 1.01 ng/dl (0.78-2.19)
[2022-07-29 14:10] LABS: 25-OH Vitamin D, Total 45.5 ng/mL (30-100)
[2022-07-29 14:22] LABS: Thyroid Stimulating Hormone 9.17 uIU/mL (0.465-4.68)
[2022-07-29 14:41] LABS: Vitamin B12 631 pg/mL (239-931)
[2022-07-30 08:15] LABS: Triiodothyronine (T3) Free 3.1 pg/mL (2.0-4.4)
== END ==
PROVIDERS: PCP Nurse Practitioner Family; Visit Provider Nurse Practitioner Family
DX: E06.3 Autoimmune thyroiditis (principal); E78.2 Mixed hyperlipidemia; E55.9 Vitamin D deficiency, unspecified; R53.82 Chronic fatigue, unspecified; G47.09 Other insomnia
CPT/HCPCS: 36415; 80053; 80061; 82306; 82607; 84439; 84443; 84481

== ENCOUNTER 2023-05-14 16:09 | Outpatient (CLI) | payer BC, SELFPAY ==
--- NOTE | 2023-05-14 16:15 | XR_ITS ---
PROCEDURE INFORMATION: Exam: XR Lumbosacral Spine Exam date and time: 05/14/2023 4:16 PM Age: 52 years old Clinical indication: Low back pain; Additional info: Lumbar back pain TECHNIQUE: Imaging protocol: Radiologic exam of the lumbosacral spine. Views: 4 or 5 views. COMPARISON: CT LUMBAR SPINE WO/W CON 02/08/2021 1:22 PM FINDINGS: Bones/joints: Minimal degenerative changes of the visualized osseous structures. Soft tissues: Unremarkable. Intraperitoneal space: Surgical clips appreciated in the pelvis. IMPRESSION: No acute or aggressive osseous abnormality.
== END 2023-05-14 23:59 ==
LOC: RAD 16:11
PROVIDERS: PCP Nurse Practitioner; Visit Provider Nurse Practitioner
DX: M54.50 Low back pain, unspecified (principal)
CPT/HCPCS: 72110

== ENCOUNTER 2023-11-02 14:03 | Outpatient (CLI) | payer BC, SELFPAY ==
--- NOTE | 2023-11-02 14:06 | CA_ITS ---
FINAL REPORT TECHNIQUE: Color Doppler, duplex Doppler and compression sonography of the right lower extremity venous system was performed. CLINICAL HISTORY: RLE edema, pain FINDINGS: There is no evidence of deep venous thrombosis from the level of the groin to the calf. The veins are patent and compressible. IMPRESSION: No evidence of deep venous thrombosis right lower extremity. Reviewed, Interpreted and Dictated by Gian Vasquez III, MD Transcribed by Blanka Stein Authenticated and . [facility]
--- NOTE | 2023-11-02 14:24 | US_ITS ---
FINAL REPORT CLINICAL HISTORY: posterior R knee pain FINDINGS: Limited sonographic images of the posterior knee were obtained. There is no mass or abnormal fluid collection. IMPRESSION: Unremarkable exam. Reviewed, Interpreted and Dictated by Gian Vasquez III, MD Transcribed by Blanka Stein Authenticated and [facility]
== END 2023-11-02 23:59 | disposition home or self-care (01) ==
LOC: RT 14:04
PROVIDERS: PCP Student in an Organized Health Care Education/Training Program; Visit Provider Student in an Organized Health Care Education/Training Program
DX: M79.604 Pain in right leg (principal); R60.0 Localized edema; M25.561 Pain in right knee
CPT/HCPCS: 76882; 93971

== ENCOUNTER 2024-02-23 10:52 | Emergency (ER) | payer BC, SELFPAY ==
[2024-02-23] VITALS (8 sets, daily range): BP systolic 141–176; BP diastolic 88–111; PULSE 91–107; RESP 18; TEMP 36.9–37.4; O2SAT 95–99; BMI 34.2
[2024-02-23 11:51] LABS: Apearance,Urine Cloudy (Clear); Bilirubin,Urine Negative (Negative); Blood, Urine 3+ (Negative); Color,Urine Dark Yellow (Yellow); Glucose,Urine (UA) Negative (Negative); Ketones,Urine Negative (Negative); Protein,Urine Negative (Negative); Specific Gravity, Urine 1.025 (1.005-1.030)
[2024-02-23 11:52] LABS: UTC Leukocyte Esterase,Urine Negative (Negative); UTC Nitrate,Urine Negative (Negative); Urobilinogen,Urine 0.2 EU/dl (0.2)
--- NOTE | 2024-02-23 11:54 | EXP.UTC ---
Discharge Plan Disposition Patient Disposition: Still a Patient Prescriptions Prescriptions: New hydrocodone-acetaminophen 5-325 mg tablet 1 tab PO Q6H PRN (Reason: pain) 3 Days Qty: 12 0RF ondansetron 4 mg tablet,disintegrating 4 mg PO Q6H PRN (Reason: nausea and vomiting) 5 Days Qty: 20 0RF levofloxacin 750 mg tablet 750 mg PO DAILY 7 Days Qty: 7 0RF No Action levothyroxine 112 mcg capsule 112 mcg PO DAILY Ozempic 2 mg/dose (8 mg/3 mL) pen injector 2 mg SQ WEEKLY Patient Comments: INJECT 2 MG SUBCUTANEOUSLY ONCE A WEEK omeprazole 40 mg capsule,delayed release(DR/EC) 40 mg PO DAILY Rx Instructions: Take 1 capsule by mouth once daily Referrals Follow up/Referrals: Robert Bernabe II, MD [Staff Physician] - See instructions Linda Kaplan APRN [Primary Care Provider] - See instructions Activity Restrictions/Add. Instructions Additional Instructions/Restrictions: You have uncomplicated diverticulitis please follow-up with Dr. Bernabe after your symptoms resolve for an outpatient colonoscopy evaluation. Additionally you had hematuria which is unrelated. Your inflammatory condition is not near the ureter or the kidney and is unlikely to be the cause of the blood in your urine. Please follow-up with the urologist to ensure resolution and to look into other etiologies associated with the blood in your urine. Clinical Impressions Clinical Impression: Diverticulitis, Hematuria Instructions Patient Instructions: DI for Acute Abdominal Pain Print Language Print Language: Burkinan Discharge ED Provider: Joseph Hurley [facility] General Chief complaint: Abdominal Pain Stated complaint: abd left side pain, congested sore throat Mode of Arrival: Ambulatory Source of Information: Patient Limitations: No Limitations Time Seen by Provider: 02/23/24 11:54 Description of Symptoms (Recalled from Triage Doc. by RN): PATIENT C/O LEFT SIDE PAIN X 2 DAYS AND CONGESTION, COUGH AND SNEEZING SINCE YESTERDAY HEENT Symptoms (Recalled from RN notes): Yes Resp Symptoms (Recalled from RN notes): Yes Skin Symptoms (Recalled from RN notes): No MS Symptoms (Recalled from RN notes): No Functional Status (Recalled from RN notes): WNL History of Present Illness Provider Complaint: Patient states that she started on with pain in her left side/abdomen that has not improved and continued to get worse States now it is hard to get comfortable, hurts when she sits or when she lays States pain is not radiating anywhere just very uncomfortable, States also yesterday she started with cough, sneezing and runny nose but main reason she came in today was because of the pain in her left side. Denies hx of kidney stones Related Data Home Medications ?Medication ?Instructions ?Recorded ?Confirmed levothyroxine 112 mcg capsule 112 mcg PO DAILY 01/12/21 02/23/24 omeprazole 40 mg capsule,delayed 40 mg PO DAILY 02/23/24 02/23/24 release semaglutide 2 mg/dose (8 mg/3 mL) 2 mg SQ WEEKLY 02/23/24 02/23/24 subcutaneous pen injector (Ozempic) Previous Rx's ?Medication ?Instructions ?Recorded hydrocodone 5 mg-acetaminophen 325 1 tab PO Q6H PRN pain 3 days #12 02/23/24 mg tablet tabs levofloxacin 750 mg tablet 750 mg PO DAILY 7 days #7 tabs 02/23/24 ondansetron 4 mg disintegrating 4 mg PO Q6H PRN nausea and 02/23/24 tablet vomiting 5 days #20 tabs Allergies Allergy/AdvReac Type Severity Reaction Status Date / Time lisinopril Allergy Severe mouth Verified 11/02/23 10:55 swelling amoxicillin AdvReac Severe Muscle Verified 11/02/23 10:55 Pain, swelling Worker's Comp Is this a Worker's Comp case?: No [facility] Disclaimer: The information contained in this section may have been updated after the patient was seen, as this information can be updated by other users. Medical History (Updated 02/23/24 @ 15:52 by Joseph Hurley MD) HTN (hypertension) Emma's thyroiditis Mitral valve prolapse Mitral valve regurgitation Myalgia Leukocytosis Hyperlipidemia Diastolic dysfunction SOB (shortness of breath) Surgical History (Updated 11/02/23 @ 11:02 by Ana Dorsey MA) History of appendectomy History of hysterectomy with bilateral oophorectomy History of right knee surgery Family History (Updated 11/02/23 @ 11:02 by Ana Dorsey MA) Family/Other No significant family history Social History Smoking Status: Never smoker alcohol intake: never substance use type: denies use current occupational status: employed ([employer]) Travel in the last 8 weeks: None household members: spouse housing: house current occupational exposures/hazards: No caffeine: Yes Have you lived/traveled outside [place] in past 30 days?: No Contact w/someone who lives/traveled outside US past 30 days?: No Exposure to someone with infectious disease in past 14 days?: No Do you have a fever (greater than 100.4 F or 38 C)?: No Have you tested positive for COVID-19: No Exposed to someone with COVID-19 in past 14 days?: No Do you have a sore throat?: Yes Do you have a cough?: Yes Do you have any weakness?: No Do you have any diarrhea?: No Are you experiencing any unusual bleeding?: No Do you have any muscle aches/pain?: No Do you have any abdominal pain?: No Are you experiencing loss of taste or smell?: No ROS Obtained: Yes All systems reviewed & no additional complaints except as documented and Yes Systems reviewed as appropriate & no additional complaints except as documented Constitutional Constitutional: Reports system reviewed and no additional complaints, except as documented and Reports as per HPI ENT Ears, Nose, Mouth, and Throat: Reports system reviewed and no additional complaints, except as documented and Reports as per HPI Cardiovascular Cardiovascular: Reports system reviewed and no additional complaints, except as documented and Reports as per HPI Respiratory Respiratory: Reports system reviewed and no additional complaints, except as documented and Reports as per HPI Gastrointestinal Gastrointestingal: Reports system reviewed and no additional complaints, except as documented, as per HPI and abdominal pain (pain in left lower abdomen area worse since ); Denies cramping, diarrhea, nausea or vomiting Genitourinary Female Genitourinary: Reports system reviewed and no additional complaints, except as documented, Reports as per HPI, Denies dysuria, Denies urinary frequency and Denies urinary urgency Musculoskeletal Musculoskeletal: Reports system reviewed and no additional complaints, except as documented and Reports as per HPI Integumentary/Breasts Skin/Breast: Reports system reviewed and no additional complaints, except as documented and Reports as per HPI Neurologic Neurologic: Reports system reviewed and no additional complaints, except as documented and Reports as per HPI Physical Exam General General appearance: alert and in no apparent distress ENT ENT exam: Present mucous membranes moist Respiratory Respiratory exam: Present normal lung sounds bilaterally; Absent respiratory distress or wheezes Cardiovascular Cardiovascular exam: Present regular rate, normal rhythm and normal heart sounds Abdominal Exam Abdominal exam: Present soft and normal bowel sounds; Absent distention, tenderness, guarding or rebound Neurological Exam Neurological exam: Present alert, oriented X3 and normal gait Medical Decision Making Medical Records Screening: Per USPSTF and CDC recommendations, given the prevalence of disease in our region, it is our hospital?s policy to screen for HIV and viral Hepatitis for all patients aged 18 and over and those with ongoing risk factors. [place] Inquiry Pt receiving controlled substance: No [place] was queried for this patient: No Vital Signs: 02/23/24 11:25 Temperature 99.4 F Temperature Source Oral Pulse Rate [Left Brachial] 91 H Respiratory Rate 18 Blood Pressure [Left Arm] 141/91 H Blood Pressure Mean [Left Arm] 107 Blood Pressure Source [Left Arm] Automatic Cuff Blood Pressure Position [Left Arm] Sitting 02 Sat by Pulse Oximetry 99 Oxygen Delivery Method Room Air Lab Data Lab Results 02/23/24 11:38: Urine Color Dark yellow, Urine Appearance Cloudy, Urine pH 7.0, Ur Specific [place] 1.025, Urine Protein Negative, Urine Glucose (UA) Negative, Urine Ketones Negative, Urine Blood 3+, Urine Nitrate Negative, Urine Bilirubin Negative, Urine Urobilinogen 0.2, Ur Leukocyte Esterase Negative 02/23/24 12:25 02/23/24 12:25 Medical Decision Narrative: Patient states that she hasnt had Menstrual cycle in about 3 years, ua showed 3+ blood in urine, pain in left lower abdomen/side progressivly worse since Denies fever, chills, or difficulty urinating at this time, Report unable to get comfortable due to the discomfort in her left lower abdomen, discussed with patient and will transfer to the ED for further work up and evaluation
--- NOTE | 2024-02-23 12:30 | CT_ITS ---
PROCEDURE INFORMATION: Exam: CT Abdomen And Pelvis Without Contrast Exam date and time: 02/23/2024 12:39 PM Age: 53 years old Clinical indication: Abdominal pain; Other: Llq pain; Additional info: Llq abd pain TECHNIQUE: Imaging protocol: Computed tomography of the abdomen and pelvis without contrast. Radiation optimization: All CT scans at this facility use at least one of these dose optimization techniques: automated exposure control; mA and/or kV adjustment per patient size (includes targeted exams where dose is matched to clinical indication); or iterative reconstruction. COMPARISON: CT ABDOMEN PELVIS W CON 03/11/2021 10:00 AM FINDINGS: Limitations: The absence of intravenous contrast limits the assessment of vascular structures, lesions and lymphadenopathy. Lungs: Lung bases are unremarkable. Liver: No focal hepatic lesions within the limits of noncontrast examination. Gallbladder and biliary ducts: Cholelithiasis noted without pericholecystic fluid/stranding. Pancreas: No peripancreatic fluid stranding. No main pancreatic ductal dilation. Spleen: No splenomegaly. Multiple splenic granulomas Adrenal glands: Normal. No mass. Kidneys and ureters: No nephrolithiasis or hydroureteronephrosis on either side. Stomach and bowel: There is wall thickening and mesenteric inflammatory changes involving a short segment of sigmoid colon. Background of diffuse diverticulosis noted. Appendix: No evidence of appendicitis. Intraperitoneal space: Unremarkable. No free air. No significant fluid collection. Vasculature: Basilar artery is patent. Aorta is nonaneurysmal. Lymph nodes: No evidence of retroperitoneal or mesenteric lymphadenopathy. Urinary bladder: Unremarkable as visualized. Reproductive: Unremarkable as visualized. Bones/joints: No acute osseous abnormality. Soft tissues: Unremarkable. IMPRESSION: Acute uncomplicated diverticulitis.
[2024-02-23 12:38] LABS: Basophils % 0.5 % (0.1-2.0); Eosinophils # 0.1 K/mm3 (0.0-0.4); Eosinophils % 0.7 % (0.1-12.0); Hematocrit 42.9 % (37.0-47.0); Hemoglobin 14.2 g/dL (12.2-16.2); Lymphocytes # 0.9 K/mm3 (0.7-4.5); Lymphocytes % 10.9 % (10-50); Mean Corpuscular HGB Conc 33.1 g/dL (31.8-35.4); Mean Corpuscular Hemoglobin 28.6 pg (27.0-31.2); Mean Corpuscular Volume 86.5 fl (81-99); Mean Platelet Volume 9.4 fl (7.4-10.4); Monocytes # 0.4 K/mm3 (0.1-1.0); Monocytes % 4.8 % (1.7-9.3); Neutrophils # 7.1 K/mm3 (1.8-7.8); Neutrophils % 82.7 % (37.0-80.0); Platelet Count 254 K/mm3 (142-424); Red Blood Count 4.96 M/mm3 (4.20-5.40); Red Cell Distribution Width 12.8 % (11.5-17.5); White Blood Count 8.5 K/mm3 (4.8-10.8)
[2024-02-23] MEDS: LACTATED RINGERS 1000ML 1,000 ML 999 ML IV (12:39)
[2024-02-23] MEDS: ONDANSETRON 4MG/2ML VIAL 4 MG IV (12:39)
[2024-02-23] MEDS: KETOROLAC 30MG/ML VIAL 15 MG IV (12:39)
--- NOTE | 2024-02-23 12:59 | HMH.EDGENADL ---
Discharge Plan Disposition Patient Disposition: Still a Patient Prescriptions Prescriptions: New hydrocodone-acetaminophen 5-325 mg tablet 1 tab PO Q6H PRN (Reason: pain) 3 Days Qty: 12 0RF ondansetron 4 mg tablet,disintegrating 4 mg PO Q6H PRN (Reason: nausea and vomiting) 5 Days Qty: 20 0RF levofloxacin 750 mg tablet 750 mg PO DAILY 7 Days Qty: 7 0RF No Action levothyroxine 112 mcg capsule 112 mcg PO DAILY Ozempic 2 mg/dose (8 mg/3 mL) pen injector 2 mg SQ WEEKLY Patient Comments: INJECT 2 MG SUBCUTANEOUSLY ONCE A WEEK omeprazole 40 mg capsule,delayed release(DR/EC) 40 mg PO DAILY Rx Instructions: Take 1 capsule by mouth once daily Referrals Follow up/Referrals: Robert Bernabe II, MD [Staff Physician] - See instructions Linda Kaplan APRN [Primary Care Provider] - See instructions Activity Restrictions/Add. Instructions Additional Instructions/Restrictions: You have uncomplicated diverticulitis please follow-up with Dr. Bernabe after your symptoms resolve for an outpatient colonoscopy evaluation. Additionally you had hematuria which is unrelated. Your inflammatory condition is not near the ureter or the kidney and is unlikely to be the cause of the blood in your urine. Please follow-up with the urologist to ensure resolution and to look into other etiologies associated with the blood in your urine. Clinical Impressions Clinical Impression: Diverticulitis, Hematuria Instructions Patient Instructions: DI for Acute Abdominal Pain Print Language Print Language: Ukrainian Discharge ED Provider: Joseph Hurley General Adult HPI General Chief complaint: Abdominal Pain Stated complaint: abd left side pain, congested sore throat Time Seen by Provider: 02/23/24 11:54 Mode of Arrival: Ambulatory Source of Information: Patient Limitations: No Limitations Description of Symptoms (Recalled from ER Triage Doc. by RN): c/o left side pain/pressure since . Pt reports that the pain was worse and is still present but has improved, denies any n/v/d or burning, frequency with urination. History of Present Illness HPI narrative: Patient is a 53-year-old female with past medical history consistent with ruptured appendicitis and a mass in the right lower quadrant with surgery removing the localized structures in that region presents today with left-sided abdominal pain. [facility] went to [facility] was found to have hematuria and sent to the emergency department for evaluation of a possible stone. Patient states symptoms have been constant and not coming and going in any way. She states the pain is relatively deep and not a lot of tenderness associated with it. No gross hematuria from historical standpoint burning frequency urgency no changes in bowel movements. Related Data Home Medications ?Medication ?Instructions ?Recorded ?Confirmed levothyroxine 112 mcg capsule 112 mcg PO DAILY 01/12/21 02/23/24 omeprazole 40 mg capsule,delayed 40 mg PO DAILY 02/23/24 02/23/24 release semaglutide 2 mg/dose (8 mg/3 mL) 2 mg SQ WEEKLY 02/23/24 02/23/24 subcutaneous pen injector (Ozempic) Previous Rx's ?Medication ?Instructions ?Recorded hydrocodone 5 mg-acetaminophen 325 1 tab PO Q6H PRN pain 3 days #12 02/23/24 mg tablet tabs levofloxacin 750 mg tablet 750 mg PO DAILY 7 days #7 tabs 02/23/24 ondansetron 4 mg disintegrating 4 mg PO Q6H PRN nausea and 02/23/24 tablet vomiting 5 days #20 tabs Allergies Allergy/AdvReac Type Severity Reaction Status Date / Time lisinopril Allergy Severe mouth Verified 11/02/23 10:55 swelling amoxicillin AdvReac Severe Muscle Verified 11/02/23 10:55 Pain, swelling PFSH PFSH Disclaimer: The information contained in this section may have been updated after the patient was seen, as this information can be updated by other users. Medical History (Updated 02/23/24 @ 15:52 by Joseph Hurley MD) HTN (hypertension) Emma's thyroiditis Mitral valve prolapse Mitral valve regurgitation Myalgia Leukocytosis Hyperlipidemia Diastolic dysfunction SOB (shortness of breath) Surgical History (Updated 11/02/23 @ 11:02 by Ana Dorsey MA) History of appendectomy History of hysterectomy with bilateral oophorectomy History of right knee surgery Family History (Updated 11/02/23 @ 11:02 by Ana Dorsey MA) Family/Other No significant family history Social History Smoking Status: Never smoker alcohol intake: never substance use type: denies use current occupational status: employed ([employer]) Travel in the last 8 weeks: None household members: spouse housing: house current occupational exposures/hazards: No caffeine: Yes Have you lived/traveled outside US in past 30 days?: No Contact w/someone who lives/traveled outside US past 30 days?: No Exposure to someone with infectious disease in past 14 days?: No Do you have a fever (greater than 100.4 F or 38 C)?: No Have you tested positive for COVID-19: No Exposed to someone with COVID-19 in past 14 days?: No Do you have a sore throat?: Yes Do you have a cough?: Yes Do you have any weakness?: No Do you have any diarrhea?: No Are you experiencing any unusual bleeding?: No Do you have any muscle aches/pain?: No Do you have any abdominal pain?: No Are you experiencing loss of taste or smell?: No Other Medical History Have you received the Flu Vaccine for this season: No Have you received the Pneumonia Vaccine: No ROS Obtained: Yes All systems reviewed & no additional complaints except as documented Physical Exam General General appearance: alert and in no apparent distress Respiratory Respiratory exam: Present normal lung sounds bilaterally Cardiovascular Cardiovascular exam: Present regular rate Abdominal Exam Abdominal exam: Present soft; Absent distention or tenderness Back Exam Back exam: Absent CVA tenderness (R) or CVA tenderness (L) Neurological Exam Neurological exam: Present alert and oriented X3 Medical Decision Making Medical Records Screening: Per USPSTF and CDC recommendations, given the prevalence of disease in our region, it is our hospital?s policy to screen for HIV and viral Hepatitis for all patients aged 18 and over and those with ongoing risk factors. [place] Inquiry Pt receiving controlled substance: No Vital Signs: 02/23/24 11:25 02/23/24 12:17 02/23/24 13:30 Temperature 99.4 F Temperature Source Oral Pulse Rate 101 H Pulse Rate [Left Brachial] 91 H 105 H Respiratory Rate 18 18 Blood Pressure 160/101 H Blood Pressure [Left Arm] 141/91 H 176/102 H Blood Pressure Mean [Left Arm] 107 126 Blood Pressure Source [Left Arm] Automatic Cuff Blood Pressure Position [Left Arm] Sitting 02 Sat by Pulse Oximetry 99 99 98 Oxygen Delivery Method Room Air Room Air Room Air 02/23/24 14:00 02/23/24 14:30 02/23/24 15:00 Temperature Temperature Source Pulse Rate 101 H 97 H 101 H Pulse Rate [Left Brachial] Respiratory Rate Blood Pressure 170/103 H 167/107 H 143/88 H Blood Pressure [Left Arm] Blood Pressure Mean [Left Arm] Blood Pressure Source [Left Arm] Blood Pressure Position [Left Arm] 02 Sat by Pulse Oximetry 96 96 98 Oxygen Delivery Method Room Air Room Air 02/23/24 15:30 Temperature Temperature Source Pulse Rate 107 H Pulse Rate [Left Brachial] Respiratory Rate Blood Pressure 171/111 H Blood Pressure [Left Arm] Blood Pressure Mean [Left Arm] Blood Pressure Source [Left Arm] Blood Pressure Position [Left Arm] 02 Sat by Pulse Oximetry 95 Oxygen Delivery Method Room Air Lab Data Lab results reviewed: Yes I reviewed the patient's lab results. Lab Results 02/23/24 11:38: Urine Color Dark yellow, Urine Appearance Cloudy, Urine pH 7.0, Ur Specific [place] 1.025, Urine Protein Negative, Urine Glucose (UA) Negative, Urine Ketones Negative, Urine Blood 3+, Urine Nitrate Negative, Urine Bilirubin Negative, Urine Urobilinogen 0.2, Ur Leukocyte Esterase Negative 02/23/24 12:25: WBC 8.5, RBC 4.96, Hgb 14.2, Hct 42.9, MCV 86.5, MCH 28.6, MCHC 33.1, RDW 12.8, Plt Count 254, MPV 9.4, Neut % (Auto) 82.7 H, Lymph % (Auto) 10.9, Reynolds % (Auto) 4.8, Eos % (Auto) 0.7, Baso % (Auto) 0.5, Neut # (Auto) 7.1, Lymph # (Auto) 0.9, Reynolds # (Auto) 0.4, Eos # (Auto) 0.1, Baso # (Auto) 0.0, Sodium 140, Potassium 4.2, Chloride 105, Carbon Dioxide 29, Anion Gap 10.2, BUN 14, Creatinine 0.60, Estimated Creat Clear 152, Estimated GFR 105, Est GFR ( Amer) 127, Glucose 99, Calcium 10.4 H, Total Bilirubin 0.9, AST 34, ALT 27, Alkaline Phosphatase 116, Total Protein 8.3 H, Albumin 4.5, Globulin 3.8 H, Albumin/Globulin Ratio 1.2, HIV Ag/Ab Combo Qual Negative 02/23/24 12:25 02/23/24 12:25 Orders (Tests/Meds): ED MEDICATIONS Discontinued Medications Generic Name Dose Route Start Last Admin Trade Name Brentq PRN Reason Stop Dose Admin Lactated Ringer's 1,000 mls @ 999 mls/hr 02/23/24 12:30 02/23/24 12:39 Lactated Ringer's 1000 Ml Bag IV 02/23/24 13:30 999 mls/hr .Q1H1M VIVIENNE Administration Ketorolac Tromethamine 15 mg 02/23/24 12:30 02/23/24 12:39 Ketorolac 30mg/Ml Vial IV 02/23/24 12:31 15 mg ONCE ONE Administration Ondansetron HCl 4 mg 02/23/24 12:30 02/23/24 12:39 Ondansetron 4mg/2ml Vial IV 02/23/24 12:31 4 mg ONCE ONE Administration ORDERS Category Date Time Status CT abdomen pelvis wo con Stat Cat Scan 02/23/24 12:30 Completed CBC w/Auto Diff [Complete Blood Count Auto Diff] Stat Lab 02/23/24 12:25 Completed CMP [Comprehensive Metabolic Panel] Stat Lab 02/23/24 12:25 Completed HIV Combo Stat Lab 02/23/24 12:25 Completed Hep C Ab with Reflex to RNA Stat Lab 02/23/24 12:25 Received Urine Culture Stat Micro 02/23/24 11:27 Received Medical Decision Narrative: 53-year-old with above history and physical presenting with hematuria as well as left-sided flank pain differential includes colonic pathology, pyelonephritis, kidney stone etc. Will get a noncontrasted CT scan as her abdominal exam is relatively benign no significant tenderness. CT scan was performed which I personally interpreted which shows no evidence of hydronephrosis or obstructing stone there is a localized area of inflammation likely diverticulitis on the left descending colon. Will await for radiology read for further evaluation and management. Symptomatic medications have been described to the patient as well. Reassessment 3:[address] scan was performed which I personally interpreted which shows no evidence of any kidney stone but she does have an inflammatory condition in descending colon consistent with acute diverticulitis radiology read consistent with this as well. No evidence of any abscess or perforation this is uncomplicated. However the inflammatory location does not explain her hematuria. She has a penicillin allergy therefore will prescribe Levaquin for her pain medicine nausea medicine have also been administered and prescribed. She will be advised to follow-up with Dr. Bernabe for an outpatient colonoscopy once this resolves. Regarding her hematuria she has been advised to follow-up with urology for further evaluation of that. No evidence of infection from that standpoint. Patient is discharged in stable condition. Critical Care Critical Care Time Critical Care Time: No
[2024-02-23 13:26] LABS: Alanine Aminotransferase 27 U/L (12-78); Albumin Level 4.5 g/dl (3.5-5.0); Albumin/Globulin Ratio 1.2 (1.1-1.8); Alkaline Phosphatase 116 U/L (38-126); Anion Gap 10.2 mEq/L (5-15); Aspartate Amino Transferase 34 U/L (14-36); Bilirubin,Total 0.9 mg/dl (0.2-1.3); Blood Urea Nitrogen 14 mg/dl (7-17); Calcium 10.4 mg/dl (8.4-10.2); Carbon Dioxide 29 mmol/L (22.0-30.0); Chloride 105 mmol/L (98-107); Creatinine Clearance Estimated 152 mL/min (50-200); Estimated Glomerular Filt Rate 105 ml/min (>60); GFR (African American) 127 ML/MIN (>60); Globulin 3.8 g/dL (1.3-3.2); Glucose 99 mg/dl (74-100); Potassium 4.2 mmoL/L (3.5-5.1); Sodium 140 mmol/L (136-145); Total Protein,Serum 8.3 g/dl (6.3-8.2)
[2024-02-23 13:44] LABS: HIV Combo NEGATIVE (Negative)
[2024-02-24 09:08] LABS: HCV Ab Non Reactive (Non Reactive)
== END 2024-02-23 16:03 | disposition home or self-care (01) ==
LOC: UTC 12:10 → ER 12:14
PROVIDERS: Nurse Practitioner; Emergency Provider Student in an Organized Health Care Education/Training Program; PCP Nurse Practitioner
DX: K57.92 Diverticulitis of intestine, part unspecified, without perforation or abscess without bleeding (principal); R31.9 Hematuria, unspecified; R10.9 Unspecified abdominal pain; R35.0 Frequency of micturition; J02.9 Acute pharyngitis, unspecified; R09.81 Nasal congestion
CPT/HCPCS: 74176; 80053; 81003; 85025; 86803; 87086; 87389; 96361; 96374; 96375; 99284; J1885; J2405; J7120

== ENCOUNTER 2025-01-31 12:44 | Outpatient (CLI) | payer BC, SELFPAY ==
--- OUTSIDE RECORDS SUMMARY | 2025-01-31 12:55 | XMS_ITS | Clinical Summary ---
Author Organization [facility] Address [address] [place] [address] Care Team Providers Care Room Cleaner Name Role Phone Linda Kaplan APRN Primary Care Provider [phone] Allergies Active Allergy Reactions Criticality Noted Date Comments Amoxicillin Other - please docum ent in the comment field High 08/05/2021 Lisinopril Swelling,Unknown - P atient states they do not know rxn details High 11/19/2017 Medications bisoprolol (Zebeta) 5 MG tablet Take 1 tablet (5 mg) by mouth 1 (one) time each day. 2 Active losartan (Cozaar) 50 MG tablet Take 1 tablet (50 mg) by mouth 1 (one) time each day. 2 Active omeprazole (PriLOSEC) [address] capsule Take 1 capsule (40 mg) by mouth 1 (one) time each day. 2 Active OMEGA-3 FATTY ACIDS PO 2 capsules every 12 (twelve) hours. Active Euthyrox 112 MCG tablet TAKE 1 TABLET BY MOUTH ONCE DAILY IN THE MORNING FOR 90 DAYS 2 Active aspirin 81 MG EC tablet Take 1 tablet (81 mg) by mouth 1 (one) time each day. Active diclofenac (Voltaren) 1 % topical gel Place on the skin 2 (two) times a day. Apply as directed to left knee 150 g 2 2 Active Additional Information Patient not taking.Reported on 08/06/2024 Ozempic, 1 MG/DOSE, 4 MG/3ML solution pen-injector INJECT 1MG SUBCUTANEOUSLY ONCE WEEKLY 4 Active meloxicam (Mobic) 15 MG tablet Take 1 tablet by mouth daily. 30 tablet 5 Active levothyroxine (Synthroid, Levoxyl) 125 MCG tablet Take 1 tablet by mouth daily. 5 Active Zepbound 5 MG/0.5ML solution auto-injector Active Family History Medical History Relation Name Comments Diabetes Other 1 Conversions - Other Other 2 Hashimot o thyroiditis Hypertension Other 3 Relation Name Status Comments Other 1 Other 2 Other 3 Social History Tobacco Use Types Packs/Day Years Used Date Smoking Tobacco: Never Smokeless Tobacco: Never Alcohol Use Standard Drinks/Week Comments No 0 (1 standard drink = 0.6 oz pure alcohol) Alcoholic Drinks/day: No history of alcohol use PHQ-2 Answer Date Recorded Patient Health Questionnaire-2 Score 0 09/20/2022 PHQ-2A Answer Date Recorded Patient Health Questionnaire-2 Score 0 09/20/2022 Comments Unknown Sex and Gender Information Value Date Recorded Sex Assigned at Not on file Legal Sex Female 7:18 PM EDT Gender Identity Not on file Sexual Orientation Not on file Last Filed Vital Signs Vital Sign Reading Time Taken Comments Blood Pressure 126/84 08/06/2024 8:09 AM EDT Pulse 70 09/20/2022 8:25 AM EDT Temperature 36.2 C (97.2 F) 06/22/2020 9:33 AM EDT Respiratory Rate 14 03/29/2018 12:46 PM EST Oxygen Saturation 97% 09/20/2022 8:25 AM EDT Inhaled Oxygen Concentration - - Weight 84.4 kg (186 lb) 08/06/2024 8:09 AM EDT Height 160 cm (5' 3 ) 08/06/2024 8:09 AM EDT Body Mass Index 32.95 08/06/2024 8:09 AM EDT Plan of Treatment Health Maintenance Due Date Last Done Comments [facility]-HIV Screening 1971 [facility]-/Child/Adol SDOH Screenings 1970 [id number] Vaccine (#1) 09/16/1976 [facility]- SDOH Screenings 09/16/1989 [facility]-Adult SDOH Screenings 09/16/1989 [facility]-DTaP,Tdap,and Td Vaccines (1 - Tdap) 09/16/1990 [facility]-Hepatitis B Vaccines (1 of 3 - 19+ 3-dose series) 09/16/1990 [facility]-Pap Smear 09/16/1992 [facility]-Cervical Cancer Screening 09/16/2001 [facility]-HPV/Cotest 09/16/2001 CT Colonography 09/16/2016 Colonoscopy 09/16/2016 FIT-DNA 09/16/2016 FIT 09/16/2016 FOBT 09/16/2016 Sigmoidoscopy 09/16/2016 [facility]-Colorectal Cancer Screening 09/16/2016 [facility]-Breast Cancer Screening 09/16/2021 [facility]-Pneumococcal Vaccine: 50+ Years (1 of 1 - PCV) 09/16/2021 [facility]-Zoster Vaccines (1 of 2) 09/16/2021 [facility]-Depression Screening 09/21/2023 09/20/2022 [facility]-Influenza Vaccine (#1) 2024 12/08/2020, [facility]-Hepatitis C Screening Completed 11/19/2017 [facility]-Obesity Intervention Completed 025, 12/05/2023, 09/20/2022, Additional history exists HPV Vaccines Aged Out No longer eligi ble based on patient's age to complete this topic [facility]-HIB Vaccines Aged Out No longer e ligible based on patient's age to complete this topic [facility]-Hepatitis A Vaccines Aged Out No longer eligible based on patient's age to complete this topic [facility]-IPV Vaccines Aged Out No longer e ligible based on patient's age to complete this topic [facility]-Rotavirus Vaccines Aged Out No lo nger eligible based on patient's age to complete this topic Procedures Procedure Name Priority Date/Time Associated Diagnosis Comments HEPATITIS C ANTIBODY W/REFLEX TO HCV QUANT PCR Routine 11/19/2017 9:00 AM EDT from Last 3 Months or Most Recently Relevant to Health Maintenance Results * Hepatitis C Antibody (11/19/2017 9:00 AM EDT) Hepatitis C Antibody NEGATIVE Reference Range: Negative SUNQUEST 11/19/2017 9:00 AM EDT 11/19/2017 11:44 AM EDT Lydia Jaramillo APRN LAB BLOOD ORDERABLES Final Res ult SUNQUEST from Last 3 Months or Most Recently Relevant to Health Maintenance Insurance ANTHEM Care Teams Room Cleaner Relationship Specialty Start Date End Date Linda Kaplan APRN [id number] [place] [address] PCP - General 07/02/20
--- OUTSIDE RECORDS SUMMARY | 2025-01-31 12:55 | XMS_ITS | Data Portability ---
Author Organization CRISTY NATASHA Singer KULA CLOSED Address [address] [facility] [address] [place] [address] Care Team Providers Care Gyroscopic Engineering Technician Name Role Phone ZORAIDA QUINTANA Primary Care Provider KEILA CARPIO Reconciliation Manager ELISHA MCKINNON Supervisor Hand Silvering Assessment Encounter Date Assessment Date Assessment LastModified by Organization Details LastModified Time 05/04/2023 05/04/2023 Impression: 1. Dyspnea on exertion: Chronic problem, with onset after COVID-07 November 2021 CBC 01/17/2022: Normal CXR 01/17/2022: Normal ECHO 02/17/2022: Concentric LV remodeling with normal LV function. No significant valvular disease. 2. Hypertension: Chronic problem, BP slightly low in the office today 3. WHO class II obesity: Chronic problem, improved 02/17/2022 BMI 41.1 05/04/2023 BMI 36.9 4. Obstructive sleep apnea Plan: Mrs. Hsieh appears to have improved significantly when compared to her last office visit in January 2022. Her respiratory symptoms in particular have improved, and she is no longer as fatigued since addressing her sleep apnea. Her sleep study reported severe sleep apnea in the supine position. RTC: At this stage, she can follow-up with me on an as-needed basis. [email or web address] Not available 05/04/2023 16:21:08 06/25/2024 06/25/2024 Impression: 1. Dyspnea on exertion: Chronic problem, with onset after COVID-07 November 2021 CBC 01/17/2022: Normal CXR 01/17/2022: Normal ECHO 02/17/2022: Concentric LV remodeling with normal LV function. No significant valvular disease. 2. Hypertension: Chronic problem, stable 3. WHO class II obesity: Chronic problem, stable 02/17/2022 BMI 41.1 05/04/2023 BMI 36.9 06/25/2024 BMI 36.3 4. Obstructive sleep apnea Plan: Mrs. Hsieh appears to have improved significantly when compared to her last office visit in January 2022. Her respiratory symptoms in particular have improved, and she is no longer as fatigued since addressing her sleep apnea. Her sleep study reported severe sleep apnea in the supine position and moderate with nonsupine positioning. Medication changes: None. RTC: We will plan to follow-up in about 12 months, or sooner if needed. [email or web address] Not available 06/25/2024 17:41:40 Plan of Treatment Reminders Order Date Submit Date Provider Last Modified By Organization Details Last Modified Time Details Appointments RECHECK 2024 09:00A M REIJ GÓMEZ MD Not available Not available Not available RECHECK 2025 10:20A M ELISHA MCKINNON PA-C Not available Not available Not available RECHECK 2025 11:00A M KEILA CARPIO MD Not available Not available Not available Lab TSH, serum or plasma 2022 023 [email or web address] [facility], [address] [place] [address], [phone], 07/31/2023 11:03:33 T4, free, serum 2022 023 [email or web address] [facility], [address] [place] [address], [phone], 07/31/2023 11:03:33 Referral None recorded. Procedures None recorded. Surgeries None recorded. Imaging None recorded. Medication Orders omeprazol e 40 mg capsule,d elayed release [address] [facility]94, [address], [address], 06/25/2024 17:41:57 bisoprolo l fumarate 5 mg tablet 2024 025 DYLON [facility] 591, [address] [place], [address], 06/25/2024 17:41:56 omeprazol e 40 mg capsule,d elayed release 2022 024 [email or web address] [facility], [address], [address], 05/04/2023 15:57:54 bisoprolo l fumarate 5 mg tablet 2022 024 [email or web address] [facility]91, [address], [address], 06/25/2024 14:41:38 Patient TargetsNo targets recorded. Patient Instructions Encounter Date Encounter Id Patient Instructions Last Modified By Organization Details Last Modified Time 05/04/2023 [id number] body mass index: care instructions [email or web address] Not available 05/04/2023 16:21:17 06/25/2024 [id number] body mass index: care instructions [email or web address] Not available 06/25/2024 17:41:49 Reason for Referral None Reported. Results Created Date Observation Date Name Description Value Unit Range Abnormal Flag Note LastModifiedBy Organization Detail LastModifiedTime 01/04/20 24 01/04/2024 T4,FR EE T4,free 1.21 NG/dL 0.93-1 .70 normal Not Available [facility] [address] [place] [address], [phone], 01/04/2024 14:11:09 01/04/20 24 01/04/2024 TSH TSH 3.410 u[IU] /mL 0.270- 4.200 normal Not Available [facility] [address] [place] [address], [phone], 01/04/2024 14:11:11 01/27/20 23 01/26/2023 MAMMO , scree luke, tomos ynthe sis, bilat eral, w/ CAD [facility] [address] [place] [id number] Roberto malik Name: ELDA malik : [id number] Age: 52 years Roberto malik 2 Orderi ng Provid er: GIOVANI MARRERO GTON EXAM DATE: 2022 EXAM: MG SCREEN ING RAKESH MAMMOG FE INDICA TION: Routin e screen ing. PROCED URE: Multis lice imagin g of both breast s was perfor med in standa rd projec tions using Hologi c Seleni a Dimens ions tomosy nthesi s equipm ent (3D mammog sho) . 2D images were create d from the 3D datase t using C-View softwa re. The study was read with the assist ance of Comput er Aided Detect ion (CAD) softwa re. COMPAR ABIDA: This was compar ed with previo us mammog jorge dated 022, 2019, 2018 FINDIN GS: The breast s are hetero geneou sly dense. This may lower the sensit ivity of mammog sho. There is no suspic ious mass or cluste r of calcif icatio ns. No kate ectura l distor tion. Scatte red asymme tries bilate rally. Grossl y stable patter n IMPRES ZACK: BI-RAD S catego ry 2, Benign . There is no eviden ce of malign dulce. Screen ing mammog jorge are recomm ended in one year. Result s were mailed or given to the roberto malik. Interp reted By: Robby Villarreal MD Electr onical ly Signed By: Robby Villarreal MD on 023 3:46 PM [facility] [address] [facility], [place], [address], 01/29/2023 16:12:41 09/30/1909/26/2024 MAMMO , scree luke, tomos ynthe sis, bilat eral, w/ [facility] [address] [place] [address] [facility] Roberto malik Name: ELDA malik : [id number] Age: 54 years Roberto malik 2 Orderi ng Provid er: GEORGE Resendez EXAM DATE: 2024 EXAM: MG SCREEN ING RAKESH MAMMOG FE INDICA TION: Routin e screen ing. The patien t report s a 50 pound weight loss since her prior mammog fe. No person al or family histor y of breast cancer . The [employer] risk assess ment module reveal ed that the patien t has a 13.29% lifeti me risk for develo ping breast cancer . PROCED URE: 2D and multis lice imagin g of both breast s were perfor med in standa rd projec tions using Hologi c Seleni a Dimens ions tomosy nthesi s equipm ent (3D mammog sho) . The study was read with the assist ance of Comput er Aided Detect ion (CAD) softwa re. COMPAR ABIDA: This was compar ed with previo us mammog jorge dated back to 2018. DENSIT Y: There are scatte red areas of fibrog landul ar densit y. FINDIN GS: There has been a genera lized increa se in the bilate ral tissue densit y compat ible with weight loss. There are scatte red benign -appea ring calcif icatio ns. No new mass, suspic ious calcif icatio ns, or areas of kate ectura l distor tion are seen. IMPRES ZACK: Benign bilate ral mammog raphic findin gs. BI-RAD S Catego ry 2, Benign findin g, routin e follow -up. The roberto t has been entere d into an automa ramonita remind er system . The standa rd false negati ve rate of mammog sho is betwee n 10% and 25%. Comple x patter ns or increa sed breast densit y will marked ly elevat e the false negati ve rate of mammog sho. If there is a palpab le area of concer n, biopsy should be consid ered regard less of imagin g findin gs. A letter , in lay termin ology, with the result s of this exam will be mailed to the roberto malik. Interp reted By: Celi whitten MD Electr onical ly Signed By: Celi whitten MD on 025 1:10 PM [email or web address] [facility] [address] , [place], [address], 09/29/2024 14:14:49 Result Notes Documentation Provider Name and Address Organization Details Recorded Time Mammo, Screening, Tomosynthesis, Bilateral, W/ Cad : [address] [place] [address] Patient Name: ELDA HSIEH Patient : 1970 Age: 52 years Patient Ordering Provider: GIOVANI RUSSELL EXAM DATE: 01/26/2023 EXAM: MG SCREENING RAKESH MAMMOGRAM INDICATION: Routine screening. PROCEDURE: Multislice imaging of both breasts was performed in standard projections using [employer] Dimensions tomosynthesis equipment (3D mammography). 2D images were created from the 3D dataset using C-View software. The study was read with the assistance of Computer Aided Detection (CAD) software. COMPARISON: This was compared with previous mammograms dated 06/03/2021, 01/01/2020, 12/13/2018 FINDINGS: The breasts are heterogeneously dense. This may lower the sensitivity of mammography. There is no suspicious mass or cluster of calcifications. No architectural distortion. Scattered asymmetries bilaterally. Grossly stable pattern IMPRESSION: BI-RADS category 2, Benign. There is no evidence of malignancy. Screening mammograms are recommended in one year. Results were mailed or given to the patient. Interpreted By: Robby Villarreal MD ANI RUSSELL, MACARONI PRESS OPERATOR [address] [place], [address], [facility] hospital 01/29/2023 15:47:46 Mammo, Screening, Tomosynthesis, Bilateral, W/ Cad : [address] [place] [address] [facility] Patient Name: ELDA HSIEH Patient : 1970 Age: 54 years Patient Ordering Provider: JUAN BARRAZA EXAM DATE: 09/26/2024 EXAM: MG SCREENING RAKESH MAMMOGRAM INDICATION: Routine screening. The patient reports a 50 pound weight loss since her prior mammogram. No personal or family history of breast cancer. The [employer]-D[employer] risk assessment module revealed that the patient has a 13.29% lifetime risk for developing breast cancer. PROCEDURE: 2D and multislice imaging of both breasts were performed in standard projections using Abroad[employer] Dimensions tomosynthesis equipment (3D mammography). The study was read with the assistance of Computer Aided Detection (CAD) software. COMPARISON: This was compared with previous mammograms dated back to 12/13/2018. DENSITY: There are scattered areas of fibroglandular density. FINDINGS: There has been a generalized increase in the bilateral tissue density compatible with weight loss. There are scattered benign-appearing calcifications. No new mass, suspicious calcifications, or areas of architectural distortion are seen. IMPRESSION: Benign bilateral mammographic findings. BI-RADS Category 2, Benign finding, routine follow-up. The patient has been entered into an automated reminder system. The standard false negative rate of mammography is between 10% and 25%. Complex patterns or increased breast density will markedly elevate the false negative rate of mammography. If there is a palpable area of concern, biopsy should be considered regardless of imaging findings. A letter, in lay terminology, with the results of this exam will be mailed to the patient. Interpreted By: Yumiko Parra MD Rachel Harden [facility] 09/29/2024 14:14:49 Problems Name Problem SNOMED Code Status Onset Date Resolution Date Notes Provider Name and Address Organization Details Recorded Time Lipoma of skin 400931943 Active 2014 Provider: Lio Xiong;Statu s: Active Not Available [facility] 4 01:54:50 Hypothyro idism 03090454 Active 2015 From Automated Load;Provi daxa: Reji Gómez;Stat us: Active Not Available [facility] 4 01:54:50 Autoimmun e thyroidit is 28959404 Active 2015 From Automated Load;Provi daxa: Reji Gómez;Stat us: Active Not Available [facility] 4 01:54:50 Obesity 610770445 Active 2016 Not Available [facility] 4 01:54:50 Notes:: Depression Screening* Date:09/16/2015 Problem Notes None recorded. Procedures Surgical History Date Name Laterality Status Provider Name and Address Organization Details Recorded Time 04/06/19 23 Airway Resistance completed Vidhya Clemencia [facility] 04/06/2022 09:11:58 04/06/19 23 [facility] Capacity [facility] 09:11:54 04/06/19 23 Lung Volumes, Plethysmography completed [facility] 04/06/2022 09:11:56 04/06/19 23 Demonstration Aerosol/Generator/N ebulizer/Optichambe r completed SHIRAZ JULES MD [address] [place], [address], [facility] hospital 04/06/2022 10:03:16 04/06/19 23 [facility] 09:11:52 02/18/20 22 Echocardiogram completed KEILA CARPIO MD [address] [place], [address], [facility] hospital 02/17/2022 09:52:04 01/18/20 22 EKG completed Ines Alexander [facility] 01/17/2022 14:17:20 06/04/19 22 Date of Last Mammogram completed Claudia De La Rosa [facility] 06/03/2021 08:36:29 01/01/20 20 Pap Smear collection completed JOSELINE STEWART [employer] OPER[employer] [address] [place], [address], [facility] hospital 01/01/2020 16:35:00 01/01/20 20 Date of Last Pap Smear completed GIOVANI RUSESLL [employer] [address] [place], [address], [facility] hospital 06/03/2021 08:45:19 Other completed Mary Jules [facility] 09/18/2016 15:42:48 Other completed Mary Jules [facility] 09/18/2016 15:43:02 Removal of ovary(s) completed [facility] 09/18/2016 15:43:26 Appendectomy completed [facility] 09/18/2016 15:43:36 Other completed [facility] 09/18/2016 15:43:59 Dilation and Curettage completed [facility] 09/18/2016 15:44:09 Imaging Results None recorded. Procedure Notes None recorded. Medical Equipment None Reported. Allergies Allergen ID Allergen Name Allergen Category Reaction Reaction Severity Criticality Documentation Date Start Date Code Code System Note Provider Name and Address Organization Details Recorded Time [id number] lisinopri l medicatio n facial swelling severe Not available 01/02/2019 28347 RxNorm Arely Herson [facility] 9 14:06:23 Medications Name Sig Start Date Stop Date Status Note LastModified by Organization Details LastModified Time losartan 50 mg tablet Take 1 tablet every day by oral route. 01/01 completed Not Available Not Available Not Available [place] Thyroid 60 mg tablet Take 1 tablet every day by oral route. 09/17 completed Not Available Not Available Not Available omega-3 fatty acids 1,000 mg capsule Take 2 capsules twice a day by oral route with meals for 90 days. 2020 active Not Available Not Available Not Avai lable Multiple Vitamin capsule Daily 07/19 completed Duration : 30 days;Brent quency: daily;Me dication Descript ion: multivit ghotra; Dosage:1 ; Route:or al; refills: 3; Quantity :100 capsule Not Available Not Available Not Available meloxicam 15 mg tablet Take 1 tablet every day by oral route. active PRN Not Available Not Available No t Available Diflucan 150 mg tablet Take 1 tablet by oral route. 11/02 completed Not Available Not Available Not Available omeprazol e 40 mg capsule,d elayed release Take 1 capsule every day by oral route. 2024 active Not Available Not Available Not Avai lable bisoprolo l fumarate 5 mg tablet TAKE 1 TABLET (5 MG) BY ORAL ROUTE AT NIGHT 2024 active Not Available Not Available Not Avai lable levothyro xine 100 mcg tablet TAKE 1 TABLET BY MOUTH IN THE MORNING 11/04 completed 09/04/19- 08/30/18 Not Available Not Available Not Available levothyro xine 125 mcg tablet Take 1 tablet every day by oral route for 90 days. 2023 active 01/01/23 - 4 Not Available Not Available Not Available lisinopri l 10 mg tablet Take 1 tablet every day by oral route. 10/19 completed Not Available Not Available Not Available gabapenti n 300 mg capsule Take 1 capsule 3 times a day by oral route. 01/02 completed Not Available Not Available Not Available Vitamin D2 1,250 mcg (50,000 unit) capsule Take 1 capsule every week by oral route. 01/02 completed Not Available Not Available Not Available levothyro xine 112 mcg tablet TAKE 1 TABLET BY MOUTH ONCE DAILY IN THE MORNING 01/[address] Juarez PCP Not Available Not Available Not Available Vitamin D 50,000 unit capsule Take 1 capsule every week by oral route. 01/02 completed Not Available Not Available Not Available azithromy prem 500 mg tablet Take 2 tablets every day by oral route. 11/02 completed Not Available Not Available Not Available Sprintec (28) 0.25 mg-0.035 mg tablet Daily 07/19 completed Frequenc y: daily;Me dication Descript ion: ethinyl estradio l-norges timate; Dosage:1 ; Route:or al; refills: 12; Quantity :1 tablet Not Available Not Available Not Available calcium OTC active Not Available Not Avail able Not Available zinc OTC 06/03 completed Not Available Not Available Not Available famotidin e 06/03 completed Not Available Not Available Not Available Vitamin D OTC active Twice weekly Not Available Not Available Not Available omeprazol e 20 mg tablet,de layed release Take 1 tablet every day by oral route. 01/17 completed Not Available Not Available Not Available B12 Patient unaware of dosage active Not Available Not Available No t Available Taytulla 1 mg-20 mcg (24)/75 mg (4) capsule Take 1 capsule every day by oral route. 04/29 completed Not Available Not Available Not Available Ozempic 1 mg/dose (4 mg/3 mL) subcutane ous pen injector Inject 1 mg every week by subcutan eous route as directed . 06/25 completed Not Available Not Available Not Available Zepbound 2.5 mg/0.5 mL subcutane ous pen injector Inject by subcutan eous route. active Not Available Not Available No t Available Vitals Date Recorded Body height Body mass index (BMI) Body weight Heart rate Respiratory rate Oxygen saturation Systolic And Diastolic Provider Name and Address Organization Details Last Updated DateTime 4 160.02 cm 36.9 kg/m2 89332.0 1 g 85 /min 16 /min 95 % 112/80 mm[Hg] Kat Mckeonaver [facility] 4 14:20:03 Date Recorded Body height Body mass index (BMI) Body weight Heart rate Oxygen saturation Systolic And Diastolic Provider Name and Address Organization Details Last Updated DateTime 5 160.02 cm 35.3 kg/m2 08436.8 8 g 83 /min 96 % 114/72 mm[Hg] Mercedes Buchananes [facility] 5 09:06:55 Date Recorded Body height Body mass index (BMI) Body weight Heart rate Oxygen saturation Systolic And Diastolic Provider Name and Address Organization Details Last Updated DateTime 5 160.02 cm 36.3 kg/m2 70451.7 2 g 86 /min 96 % 128/80 mm[Hg] Imelda Cifuentes [facility] 5 14:46:21 Date Recorded Body height Body mass index (BMI) Body weight Heart rate Systolic And Diastolic Provider Name and Address Organization Details Last Updated DateTime 01/01/2023 160.02 cm 37.4 kg/m2 73811.99 g 73 /min 115/75 mm[Hg] Joseline Laboy [facility] 01/01/2023 09:51:18 Date Recorded Body height Body mass index (BMI) Body weight Heart rate Systolic And Diastolic Provider Name and Address Organization Details Last Updated DateTime 01/04/2024 160.02 cm 34.4 kg/m2 77615.92 g 80 /min 112/78 mm[Hg] Joseline Laboy [facility] 01/04/2024 13:20:23 Social History Question Answer Notes LastModified by Organizat ion Details LastModified Time Tobacco Smoking Status [facility] 15:42:20 What Is Your Level Of Caffeine Consumption? Occasional Information not available 01/01/2020 How Much Tobacco Do You Chew? None Information not available 01/01/2020 What Was The Date Of Your Most Recent Tobacco Screening? 06/25/2024 Information not available 06/25/2024 What Is Your Relationship Status? Information not available 02/17/2022 How Much Tobacco Do You Smoke? No Information not available 10/16/2017 Has Tobacco Cessation Counseling Been Provided? No [email or web address] Information not available 09/18/2016 On What Date Was Tobacco Cessation Counseling Provided? 06/25/2024 [email or web address] Answered No To The Tobacco Cessation Counseling Provided Question On 09/18/2016. Information not available 06/25/2024 How Many Years Have You Smoked Tobacco? 0 Information not available 10/16/2017 Have You Recently Traveled Abroad? No Information not available 05/03/2022 Sex: Female Functional Status Question Answer Note LastModified by Organizat ion Details LastModified Time Do you use any illicit or recreational drugs? No Information not available 05/03/2022 Do you or have you ever used any other forms of tobacco or nicotine? No Information not available 05/03/2022 What is your level of alcohol consumption? None [email or web address] Information not available 09/18/2016 Do you or have you ever used smokeless tobacco? Never used smokeless tobacco [email or web address] Information not available 01/01/2020 Are you currently employed? Yes Information not available 05/03/2022 Have you been exposed to chemicals or toxins? No Information not available 05/03/2022 Do you or have you ever used e-cigarettes or vape? Never used electronic cigarettes [email or web address] Information not available 01/01/2020 What is your exercise level? Occasional Information not available 05/03/2022 Mental Status None recorded. Family History Relationship Description Onset Age of this Age Resolved Age Notes LastModified by Organization Details LastModified Time Father Arthritis Not availa ble 07/19/2017 13:52:23 Father Malignant melanoma [email or web address] Not available 2017 13:41:28 Father Glaucoma Not availab le 07/19/2017 13:52:23 Father Hypertensive disorder Not available 2016 15:41:47 Father Disorder of thyroid gland [email or web address] Not available 2016 15:42:09 Father Sarcoma 70 71 [email or web address] Not availabl e 01/01/2020 13:25:29 Maternal Grandmother Malignant neoplasm of uterus 63 [email or web address] Not available 2017 13:41:28 Paternal Grandfather Family history of colorectal cancer 64 [email or web address] Not available 2017 13:41:28 Paternal Grandfather Malignant neoplasm of pancreas [email or web address] Not available 2017 13:41:28 Paternal Grandfather Carcinoma of prostate [email or web address] Not available 2017 13:41:28 Mother Seizure Not availabl e 07/19/2017 13:52:23 Medical History Condition Response Coronary Artery Disease N Atrial Fibrillation N Heart Arrhythmia N Blood Transfusion N Emphysema N COPD N Depression N Pneumonia N Peripheral Arterial Disease N Nervous Illness N Edema N Sinusitis Y Anxiety Disorder Y Arthritis Y Hiatal hernia N Acid Reflux (GERD) Y Cancer N Stroke N Varicosities N Hoarseness N Arrhythmia N Headaches Y Endocrine Disorder N Kidney Disease N Heart Problems Y Heart Conditions Y Implanted Cardiac Device N Hospitalizations N Black Lung N Ulcers N Pulmonary Fibrosis N Rheumatic Fever Y Bleeding Disorder N Tuberculosis N AIDS/HIV N Asthma N Cardiac Disease N Peripheral Vascular Disease N Jaundice N Thyroid Disorder Y GERD/Reflux Y Hepatitis N Cirrhosis N Neuropathy N Restless leg syndrome N Pulmonary Embolism N Chicken Pox Y Thyroid Disease Y Sarcoidosis N Lung Disease N Glaucoma N Pulmonary Hypertension N Pacemaker N Vascular Disease N Anesthesia Complications N Deep Vein Thrombosis N Shingles Y Alpha 1 Antitrypsin Deficiency N History of Blood Thinners N Blood Thinners N Shortness of Breath N High Cholesterol N Liver Disease N Allergies/Hayfever N Chronic Obstructive Pulmonary Disease N Alzheimer's N Thyroid Problems Y Anemia N Immune System Disorder Y Chest Pain N Heart Attack (OR) N Diabetes N Cardiomyopathy N Seizures/Epilepsy N Heart Murmur Y Congestive Heart Failure (CHF) N Hyperlipidemia N Sleep Apnea Y Warfarin Management N Aneurysm N Heart Disease N Hypertension N Osteoporosis N Gynecological History Statement/Question Response Abnormal Pap Yes Flow Light Date of Last Mammogram 06/03/2021 Date of LMP 12/21/2019 Post Menopausal Bleeding N STIs/STDs N HPV Vaccine N Duration of Flow (days) 5 Age at Menarche 10 Current Control Method Menopause If Post Menopausal, Age at Menopause 49 Date of Last Colonoscopy Most Recent Bone Density Menses Monthly N Date of Last Pap Smear 01/01/2020 LMP Definite Colonoscopy Obstetrics History GPAL:G 0 P 0 0 0 0 Type Value Living 0 Total 0 Immunizations Vaccine Type Date Status Note Provider Nam e and Address Organization Details Recorded Time Influenza, split virus, quadrivalent, preservative 9 completed Not Available Formerly [facility], [facility] 04/10/2023 01:54:50 Influenza A monovalent (H5N1), ADJUVANTED-2012 0 completed Not Available Formerly [facility], [facility] 04/10/2023 01:54:50 Influenza, split virus, quadrivalent, preservative 1 completed Not Available Formerly [facility], [facility] 04/10/2023 01:54:50 Past Encounters Encounter ID Performer Location Encounter Start Date Encounter Closed Date Diagnosis/Indication Diagnosis SNOMED-CT Code Diagnosis ICD10 Code Diagnosis IMO Codes Diagnosis Note [id number] [facility] [address] 05/22/2016 16:55:28 05/22/2016 16:55:28 [id number] REJI GÓMEZ MD ENDOCRINO [address] [address] [place] [address] 06/16/2016 12:19:49 06/16/2016 15:01:30 Hypothyroidism 01481525 E06.3 Clinically has some of the specific symptomsNo rmal TSH of 0.894 and slightly elevated free T4 of 1.720Conti nue current levothyrox ine dose of 100 g every a.m. appropriat vick as instructed Patient was instructed on the appropriat e method of levothyrox ine administra tion to be taken every a.m. on an empty stomach as new food, drinks or other medication s for at least 30 minutes. PPI and calcium -containin g preparatio ns is preferred to be given at least of her hours before or after levothyrox ine therapy.Pr ovided with a hard copy of her recent labs.Presc ription renewed today. Obesity 959730678 E66.9 Body mass index of 34.7Counse led about the importance of lifestyle interventi ons i.e. low-calori e diet and activity.S he will call our office if she is interested in pharmacolo gic therapy for obesity. [id number] MD NELA ROB [place] [address] [place] [address] 09/18/2016 14:45:29 09/18/2016 16:13:04 Gynecologic examination 74543305 Z01.419 Contracept ion care management 590069084 Z30.9 Screening mammography 24 770200 Z12.31 Hypertrophy of breast 37 4705973 N62 discussed referral for reduction - patient will call back if becomes more interested Routine gy necologic examination done 4344194163 9101 Z01.419 Infection screening 2437 91561 Z11.9 [id number] REJI GÓMEZ MD ENDOCRINO [address]Y [address] [place] [address] 07/19/2017 13:42:46 07/19/2017 14:16:16 Hypothyroidism 55681090 E06.3 Clinically has some of the specific symptomsTS H from outside facility on 07/19/2017 is normal [1.98]Free T4 is normal of 1.29 [0.76 1 .46]Contin ue current levothyrox ine dose of 100 g every a.m. appropriat vick as instructed Patient was instructed on the appropriat e method of levothyrox ine administra tion to be taken every a.m. on an empty stomach as new food, drinks or other medication s for at least 30 minutes. PPI and calcium -containin g preparatio ns is preferred to be given at least of her hours before or after levothyrox ine therapy.Pr escription renewed today. Acquired hypothyroidism 917142324 E03.9 See above [id number] DEMARCUS ARMAS APRN [facility] [place] [address] [place] [address] 10/19/2017 13:18:02 10/19/2017 15:19:36 Routine gynecologic examination done [id number] 9101 Z01.419 Annual gynecologi lorena exam performed. Patient will come back in a year unless there are new symptoms. Pap not indicated Body mass index 30+ - obesity 166175220 Z68.39 BMI 34.2. Patient educated on lifestyle modificati ons. Advised to exercise regularly (at least 3 times a week for 30 minutes) and to lose weight. Educated on health risks associated with obesity. Further orders indicated below. Essential hypertension 12146268 I10 BP 124/80. Cont current meds. Acute cervicitis 1090880 0 N72 Cervix is red, friable, cmt. will treat and recheck in 2 weeks. [id number] NICOLE MAK [address] [place] [address] 11/02/2017 10:15:00 11/02/2017 11:52:56 Acute cervicitis 15632386 N72 Resolved. To with any abnormal bleeding, pain or bleeding with intercours e. [id number] REJI GÓMEZ MD ENDOCRINO LOGY [address] [place] [address] 08/30/2018 14:17:49 08/30/2018 14:58:13 Hypothyroidism 46538680 E06.3 Clinically appears euthyroidT SH of 0.327 and free T4 Of 1.3 on 08/30/2018C ontinue current levothyrox ine dose of 100 g every a.m. appropriat vick as instructed Patient was instructed on the appropriat e method of levothyrox ine administra tion to be taken every a.m. on an empty stomach as new food, drinks or other medication s for at least 30 minutes. PPI and calcium -containin g preparatio ns is preferred to be given at least of her hours before or after levothyrox ine therapy.Pr escription renewed today.1 year follow-up visit [id number] NICOLE HURST [address] [place] [address] 01/02/2019 13:49:21 01/02/2019 14:57:49 [facility] [id number] N64.[address] Dominguez re: plan of care --- see below. Mammograph ic breast density 351030918 R92.2 [id number] REJI GÓMEZ MD ENDOCRINO [address]Y [address] [place] [address] 09/18/2019 14:54:44 09/18/2019 16:10:23 Hypothyroidism 87485196 E06.3 Clinically reported fatigue, lack of energy and weight gainTSH of 0.327 and free T4 of 1.3 on 08/30/2018T SH and free T4 done today with results are still pending Recommenda tions: Continue current levothyrox ine dose of 100 g every a.m. appropriat vick as instructed Patient was instructed on the appropriat e method of levothyrox ine administra tion to be taken every a.m. on an empty stomach as new food, drinks or other medication s for at least 30 minutes. PPI and calcium -containin g preparatio ns is preferred to be given at least of her hours before or after levothyrox ine therapy.Pr escription renewed today.1 year follow-up visit [id number] NICOLE HURST [address] [place] [address] 01/01/2020 13:08:51 01/01/2020 14:15:09 Routine gynecologic examination done [id number] 9101 Z01.419 Screening for malignant neoplasm of breast 806493230 Z12.39 has appt today Fragile blood vessel 248 446877 R94.39 Friable Cervix/ OneSwab taken Flushing 985845193 R23.2 Menopausal syndrome 1237 43763 N95.9 DC the OCPs; keep bldg calendar Postcoital bleeding 4888 0000 N93.0 OneSwab taken Microscopic hematuria 19 5903650 R31.29 Persistent hematuria per pt; will r/o infection. Abnormal urine 323865123 R82.90 Explained to pt that microscopi c hematuria is wnl for up to 6 wks after a bad cystitis. But, after 6 wks, it should be further evaluated by urology. [id number] NICOLE [address]URST [address] [place] [address] 04/29/2020 13:21:40 04/29/2020 13:54:22 Follow-up visit 982609072 Z09 Neck pain 14870940 M54.2 neck & shoulder pain related to large breasts; wishes surg consult [id number] REJI GÓMEZ MD ENDOCRINO [address]Y [address] [place] [address] 11/04/2020 13:13:30 11/05/2020 12:31:56 Hypothyroidism 68647931 E06.3 Clinically reported fatigue, lack of energy and weight gain -Normal TSH of 3.9 Recommenda tions:Furt her increase levothyrox ine dose of 112 g every a.m. appropriat vick as instructed Patient was instructed on the appropriat e method of levothyrox ine administra tion to be taken every a.m. on an empty stomach as new food, drinks or other medication s for at least 30 minutes. PPI and calcium -containin g preparatio ns is preferred to be given at least of her hours before or after levothyrox ine therapy.Re peat labs after 6 weeks Further adjustment as appropriat e Mixed hyperlipidemia 267 375943 E78.2 Fasting lipid panel on 11/03/2020 showed triglyceri kareen elevated at 413, total cholestero l 288, direct LDL cholestero l of 98.7 to an HDL cholestero l low at 36She denies any alcohol consumptio n Normal TSH of 3.9 Currently on no control Counseled about the importance of saturated fat diet, simple carbohydra te diet. Start omega-3 2 g twice daily Recheck fasting lipid panel after 6 weeks. Xerostomia 26914852 K11. 7 Blood glucose of 110 on 11/03/2020 he denies any polyuria Recommende d referral to ENT but she preferred to see an ENT in [place]. She will call our office if she needs a referral to see you [facility] ENT Patient verbalized understand ing and agreed with the above mentioned plan of care. [id number] GIOVANI RUSSELL APRN [facility] [address] [place] [address] 06/03/2021 08:19:35 06/03/2021 09:10:00 Gynecologic examination 21416381 Z01.419 PAP not indicated todayPatie nt to follow up in one year for annual or sooner as needed Pain in pelvis 81226782 R10.2 Negative exam todayWill evaluate with pelvic ultrasound Patient to follow up on same day as ultrasound to discuss results and plan of care [id number] GIOVANI RUSSELL APRN [facility] [address] [place] [address] 06/24/2021 10:56:10 06/24/2021 13:04:42 Pain in pelvis 29940749 R10.2 Discussed preliminar y results of today's ultrasound which revealed > 1.5 uterine mass. Advised patient may be fibroid. Will contact her with official radiology reading of ultrasound . Patient reports history of uterine fibroids with myosure with Dr. Torres in 2011 followed by removal of right ovarian abscess involving her appendix a few days later.revi ewed records from Archived records: Oct 2011 also discussed <1cm left ovarian density. Again advised patient will contact her with radiology reading.Mo st likely will need repeat ultrasound in 6-8 weeks Blood pres sure above reference range 08173458 R03.0 blood pressure 132/100Pat ient reports that she has not taken her morning HTN medication but will take nowAdvised patient to recheck BP today at homefollow up with PCP if still elevated [id number] REJI GÓMEZ MD ENDOCRINO LOGY [address] [place] [address] 12/07/2021 12:53:23 12/07/2021 14:22:27 Hypothyroidism 90232813 E06.3 Clinically reported fatigue, lack of energy and weight gain TSH of 1.6 and free T4 of 1.76 In terms are unlikely to be thyroid related Recommenda tions:Into new current levothyrox ine dose of 112 g every a.m. appropriat vick as instructed Patient was instructed on the appropriat e method of levothyrox ine administra tion to be taken every a.m. on an empty stomach as new food, drinks or other medication s for at least 30 minutes. PPI and calcium -containin g preparatio ns is preferred to be given at least of her hours before or after levothyrox ine therapy. Mixed hyperlipidemia 267 174780 E78.2 Fasting lipid panel on 11/03/2020 showed triglyceri kareen elevated at 413, total cholestero l 288, direct LDL cholestero l of 98.7 to an HDL cholestero l low at 36 Follow-up fasting lipid panel today showed triglyceri kareen down to 223, HDL of 43 and total cholestero l 100 Continue current omega-3 2 g twice daily Counseled about the importance of low cholestero l and low saturated fat diet Mitral valve prolapse 40 5363478 I34.1 Referral to cardiology for further evaluation given her history of mitral valve prolapse Obstructiv e sleep apnea syndrome 20219637 G47.33 Recommende d official sleep study for sleep apnea given her symptoms and history of abnormal home sleep study. She will call our office to issue her referral Patient verbalized understand ing and agreed with the above mentioned plan of care. [id number] KEILA CARPIO MD CARDIOLOG Y [address] [place] [address] 01/17/2022 14:11:32 01/17/2022 15:42:16 Obesity 327559902 E66.9 Mitral valve prolapse 40 5828771 I34.1 Dyspnea on exertion 6084 5006 R06.09 [id number] KEILA CARPIO MD CARDIOLOG Y [facility] [address] [place] [address],[address] [place] [address] 02/17/2022 08:54:00 02/17/2022 10:17:39 Obesity 152017087 E66.9 Dyspnea on exertion 6084 5006 R06.09 Gastroesop hageal reflux disease 686945731 K21.9 [id number] KEILA CARPIO MD ECHO VASCULAR LAB [place] [address] 02/17/2022 08:53:14 02/17/2022 15:32:22 Mitral valve prolapse 217704684 I34.1 [id number] SHIRAZ JULES MD PULMONARY [address] [facility], [address] [place] [address] 04/06/2022 08:49:28 04/06/2022 14:09:13 Dyspnea 787701848 R06.00 Persistent feeling of a pressure in the back of her throat associated with shortness of breath ever since having COVID-pneu monia. Normal chest x-rays and pulmonary function testing. I will get CT imaging to make sure she does not have a structural abnormalit y in the back of her throat or in her trachea. I will also send her home with samples of Breo to try in case she has developed asthma. Feeling of lump in throat 096268854 F45.8 Snoring 35770301 R06.83 Significan tly increased snoring and witnessed apneic episodes after gaining weight. Had a previous Sleep study at [facility] roughly 5 to 6 years ago. She thinks her test had moderate sleep apnea but she also thinks that she was told that the number on it was 5. Otherwise she was not treated at that point in time. I think she warrants repeat evaluation for sleep apnea and will have her scheduled with Elisha Mckinnon for sleep evaluation . [id number] ELISHA MCKINNON PA-C PULMONARY [address] [facility], [address] [place] [address] 1 05/03/2022 08:41:33 05/04/2022 11:38:00 Snoring 59100348 R06.83 Patient will be scheduled for a sleep study to evaluate for HYUN. We discussed HYUN and CPAP in detail. We discussed the importance of weight loss and the treatment of HYUN. The health risks of untreated HYUN including cardiac risks such as OR and stroke were also discussed. Patient cautioned regarding sedating substances including sleep aids, alcohol etc. I will call patient with sleep study result. Requested a copy of her original sleep study but she may need a repeat sleep study which would be a home sleep study. [id number] ELISHA MCKINNON PA-C PULMONARY [address] [facility], [address] [place] [address] 1 09/14/2022 08:05:07 09/14/2022 10:34:50 Obstructive sleep apnea syndrome 67564352 G47.33 Discussed sleep study in detail. CPAP treatment is recommende d. Patient agrees to start CPAP. This will be ordered. Patient will call office to schedule follow up after obtaining CPAP. Health risks including cardiac risks of untreated HYUN have been discussed. [id number] ELISHA MCKNINON PA-C PULMONARY [address] [facility], [address] [place] [address] 1 12/07/2022 07:52:15 12/07/2022 13:45:34 Obstructive sleep apnea syndrome 56156223 G47.33 Patient does obtain clinical benefit from CPAP. patient is compliant with CPAP. Residual AHI is optimal. change to autopap 6-14 cm H20 [id number] REJI GÓMEZ MD ENDOCRINO LOGY [address] [place] [address] 01/01/2023 09:27:15 01/01/2023 11:15:03 Hypothyroidism 06385953 E06.3 Clinically she denies any symptoms of hypothyroi dismShe also reported no symptoms of exogenous hyperthyro idismThyro id replacemen t therapy dose increased by her PCPMost recent TSH in our lab was 1.6 and free T4 of 1.78 on 12/07/2021 Recommenda tions:Cont inue current levothyrox ine dose of 125 g every a.m. appropriat vick as instructed at presentPat ient was instructed on the appropriat e method of levothyrox ine administra tion to be taken every a.m. on an empty stomach as new food, drinks or other medication s for at least 30 minutes. PPI and calcium -containin g preparatio ns is preferred to be given at least of her hours before or after levothyrox ine therapy.TS h and free [id number] adjustment as appropriat e pending Mixed hyperlipidemia 267 903411 E78.2 Fasting lipid panel on 11/03/2020 showed triglyceri kareen elevated at 413, total cholestero l 288, direct LDL cholestero l of 98.7 to an HDL cholestero l low at 36 Follow-up fasting lipid panel today showed triglyceri kareen down to 223, HDL of 43 and total cholestero l 100 Continue current omega-3 2 g twice daily over-the-c ounterCoun seled about the importance of low cholestero l and low saturated fat dietPatien t verbalized understand ing and agreed with the above mentioned plan of care. [id number] KEILA CARPIO MD CARDIOLOG Y [address] [place] [address] 05/04/2023 13:17:29 05/04/2023 15:03:09 Obesity 075366894 E66.9 Dyspnea on exertion 6084 5006 R06.09 Gastroesop hageal reflux disease 101191156 K21.9 [id number] REJI GÓMEZ MD ENDOCRINO LOGY [address] [place] [address] 01/04/2024 13:00:20 01/04/2024 14:35:29 Hypothyroidism 96343422 E06.3 Clinically she denies any symptoms of hypothyroi dismShe also reported no symptoms of exogenous hyperthyro idismMost recent TSH in our lab was 1.6 and free T4 of 1.78 on 12/07/2021 at [facility] lab Recommenda tions:Cont inue current levothyrox ine dose of 125 g every a.m. appropriat vick as instructed at presentPat ient was instructed on the appropriat e method of levothyrox ine administra tion to be taken every a.m. on an empty stomach as new food, drinks or other medication s for at least 30 minutes. PPI and calcium -containin g preparatio ns is preferred to be given at least of her hours before or after levothyrox ine therapy.TS h and free T4 done todayFurth er adjustment as appropriat e pending today's lab work Mixed hyperlipidemia 267 958578 E78.2 Fasting lipid panel on 11/03/2020 showed triglyceri kareen elevated at 413, total cholestero l 288, direct LDL cholestero l of 98.7 to an HDL cholestero l low at 36 Most recent lipid panel on 12/07/2021 at [facility] labs showed total cholestero l/LDL 197/109, elevated triglyceri kareen of 223 and HDL cholestero l 43Continue current omega-3 2 g twice daily over-the-c ounterCoun seled about the importance of low cholestero l and low saturated fat dietPatien t verbalized understand ing and agreed with the above mentioned plan of care. [id number] ELISHA MCKINNON PA-C PULMONARY [address] [facility], [address] [place] [address] 06/19/2024 08:58:33 06/19/2024 10:58:24 Obstructive sleep apnea syndrome 19850923 G47.33 I changed CPAP to a straight 6 cm H2O. Patient will update me in 2 weeks. She may need a CPAP/BiPAP titration study. She tries to avoid sleeping while supine. [id number] KEILA CARPIO MD CARDIOLOG Y [facility] [address] [place] [address] ,[address] [place] [address] 06/25/2024 14:05:43 06/25/2024 15:33:36 Obesity 351335126 E66.9 Dyspnea on exertion 6084 5006 R06.09 Gastroesop hageal reflux disease 688613005 K21.9 Health Concerns Section Related Observation LastModified by Organization Detai ls LastModified Time None Recorded Concern Status LastModified by Organization Details LastModified Time None Recorded Advance Directives Directive None Recorded Payers Insurance Date Sequence Insurance Name Policy Number Policy Echols Covered Member ID Echols Member ID Guarantor Name 09/25/2024 1 [place] [id number] Jeremiah Hsieh [id number] [place] Notes Date Note Type Note Provider Name and Address Organization Details Recorded Time 01/01/2023 text/html ROS as noted in the HPI 52-year-old female patient with a past medical history as detailed below significant for Emma thyroiditis, primary hypothyroidism on thyroid hormone replacement therapy and obesity who seen in the office today for 13 months follow-up visit autoimmune thyroiditis/hypothyroi dism therapy/combined hyperlipidemia and abnormal symptoms [ fatigue/lack of energy] For detailed history please refer to my initial consultation notes on her.Was initially seen at the request of Dr. Torres in regards to uncontrolled hypothyroidism on markedly elevated TSH in the context of markedly positive thyroid antibody panel i.e. TPO and thyroglobulin antibodies.Currently seeing a lubrication servicer for mitral valve prolapse and she is interested in seeing one of our lubrication servicer.Interval history:She currently takes Levothyroxine 125 mcg up from 112.Reported having an abnormal thyroid lab work at her PCP office 2 months ago. Levothyroxine increased to her current dose as stated aboveFelt better after increasing her dose i.e. less 50Denies any chest pain palpitations, shaking, excessive sweating or heat intoleranceDenies any heat or cold intolerance. REJI GÓMEZ MD [address] [place] [address], [phone], [facility] 01/01/2023 11:13:03 05/04/2023 text/html CARDIOVASCULAR HISTORY:# No known coronary artery disease# Hypertension # Obstructive sleep apneaModerate HYUN with an AHI of 26.4. HYUN was severe while supine with an AHI of 66.8. Family history:Mother: No cardiac historyFather: at age 73 from sarcoma. He had an OR towards the end of his life (? Type II related to anemia). He also had type 2 diabetes.Neither of her siblings have any cardiac history. 01/17/2022: Initial visit regarding shortness of breathMrsSydney Hsieh notes that she has had 4 infections with COVID-19. She notes that 2 of these were incidental positives on tests, but 2 were associated with significant symptoms. In October 2021, she was diagnosed with COVID infection. She was not admitted, and was sent home with vitamins . She developed a secondary pneumonia. Her sats were apparently in the 80s and in early November 2021, she received monoclonal antibodies for her COVID infection. She eventually returned back to work around 4 weeks after her initial infection. 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 She notes that her also contracted severe COVID-19 infection and was in the ICU for around 11 days. Since recovering from her COVID-19, she has had issues with dyspnea. She was seen by a local delivery architect who told her the lower lungs are collapsed . She notes that she constantly has problems with her breathing, but my chest feels real tight when I lay flat . She also notes that it feels like I am breathing in cold air all the time . She reports a nonproductive cough if she lays flat. She does not have any shortness of breath with daily activities, but notes that she will get out of breath if she has to walk about a mile. She has not recently been evaluated a lubrication servicer, but had been told that she had mitral valve prolapse per her evaluation in around 2014. She has gained between 20 and 25 pounds in the past year. She occasionally notes some ankle swelling at the end of the day, but has not had any edema per se. EKG: Normal sinus rhythm at a rate of 77 bpm.Low voltage in the precordial leads.QRS duration 91 and QTc 409ms. 02/17/2022: Short interval follow-up after echocardiogram.She reports roughly the same health status as she had when I saw her last month.She notes that she has not had much in way of exertional symptoms, and predominantly feels chest tightness when she lays supine. She feels that she is able to climb stairs and ambulate without dyspnea. We reviewed her echocardiogram findings today, which did not show any significant structural disease. Reassurance was provided. We briefly discussed the potential for a trial of empagliflozin, but I noticed that this is more likely to improve symptoms in patients that have exertional dyspnea rather than supine/positional breathing difficulties. She is interested in pursuing pulmonary evaluation, and I offered to schedule her to see Dr. Jules. 05/04/2023: 1 year recheckSleep study showed moderate HYUN with an AHI of 26.4.HYUN was severe while supine with an AHI of 66.8. She reports that her overall health has improved, and has no new cardiovascular concerns.In particular, her respiratory symptoms have resolved. She feels that she has more energy and less fatigue throughout the day since starting use of CPAP.She has lost about 24 pounds of weight since I last saw her. She is currently using Ozempic.No abdominal complaints were noted.No cough. No PND or orthopnea.No palpitations. KEILA CARPIO MD [address] [place] [address], [phone], [facility] access hospital 05/04/2023 16:21:20 01/04/2024 text/html ROS as noted in the HPI 53-year-old female patient with a past medical history as detailed below significant for Emma thyroiditis, primary hypothyroidism on thyroid hormone replacement therapy and obesity who seen in the office today for 13 months follow-up visit autoimmune thyroiditis/hypothyroi dism therapy/combined hyperlipidemia and abnormal symptoms [ fatigue/lack of energy]Summary of history: 01/01/2023For detailed history please refer to my initial consultation notes on her.Was initially seen at the request of Dr. Torres in regards to uncontrolled hypothyroidism on markedly elevated TSH in the context of markedly positive thyroid antibody panel i.e. TPO and thyroglobulin antibodies.Currently seeing a lubrication servicer for mitral valve prolapse and she is interested in seeing one of our lubrication servicer.Interval history:She currently takes Levothyroxine 125 mcg every a.m.She denies any palpitation, shaking, excessive sweating, he not on tolerance or weight loss She also denies any fatigue, dry skin, hair loss or weight gain. REJI GÓMEZ MD [address] [place] [address], [phone], [facility] 01/04/2024 14:25:23 06/19/2024 text/html Patient sleep study that showed moderate HYUN with an AHI of 26.4. HYUN was severe while supine with an AHI of 66.8. After pressure change to auto 6-12 cm H2O, she still feels that the pressure is too high. She is still having difficulty tolerating CPAP. At times, she feels that she is smothering. I reviewed her CPAP data on her machine. Her residual AHI is 1.1. Average device pressure is 6 cm H20. She reports that she does not typically sleep supine. ELISHA MCKINNON PA-C [address] [place], [id number], [facility] 06/19/2024 10:02:39 06/25/2024 text/html ROS as noted in the HPI CARDIOVASCULAR HISTORY:# No known coronary artery disease# Hypertension # Obstructive sleep apneaModerate HYUN with an AHI of 26.4. HYUN was severe while supine with an AHI of 66.8. Family history:Mother: No cardiac historyFather: at age 73 from sarcoma. He had an OR towards the end of his life (? Type II related to anemia). He also had type 2 diabetes.Neither of her siblings have any cardiac history. 05/04/2023: 1 year recheckSleep study showed moderate HYUN with an AHI of 26.4.HYUN was severe while supine with an AHI of 66.8. She reports that her overall health has improved, and has no new cardiovascular concerns.In particular, her respiratory symptoms have resolved. She feels that she has more energy and less fatigue throughout the day since starting use of CPAP.She has lost about 24 pounds of weight since I last saw her. She is currently using Ozempic.No abdominal complaints were noted.No cough. No PND or orthopnea.No palpitations. 06/25/2024: 1 year recheckMrsSydney Canales was initially seen in December 2021 regarding shortness of breath. She was subsequently found to have moderate obstructive sleep apnea (normal supine) and severe sleep apnea in the supine position. Sleep study showed moderate HYUN with an AHI of 26.4.HYUN was severe while supine with an AHI of 66.8. She reports that her overall health has improved with introduction of CPAP, although notes that she has had to have the pressure adjusted. She is now on a constant pressure of 6, rather than AutoPap 6/12. In February, she was seen in her local emergency room with acute severe left lower quadrant pain attributed to diverticulitis. She is being followed by Dr. Bernabe. She states that she still having some pain in that area. Her respiratory symptoms remain stable.Previously noted, she has felt an increase in energy and less fatigue throughout the day since starting use of CPAP. She had lost about 24 pounds of weight since using Ozempic; now switching over to Zepbound.No abdominal complaints were noted.No cough. No PND or orthopnea.No palpitations. KEILA CARPIO MD [facility] [place], [phone], [facility] hospital 06/25/2024 17:41:52 OBGyn Episode No OBEpisode recorded.
--- NOTE | 2025-01-31 13:32 | XR_ITS ---
PROCEDURE INFORMATION: Exam: XR Sacrum and Coccyx, 2 or More Views Exam date and time: 01/31/2025 1:28 PM Age: 54 years old Clinical indication: Other: Pain in sacrum area; Additional info: Tailbone injury TECHNIQUE: Imaging protocol: XR of the sacrum and coccyx, 2 or more views. 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 There is no evidence of acute fracture.There is no evidence of malalignment or dislocation. Soft tissues: Normal. IMPRESSION: There is no evidence of acute fracture.There is no evidence of malalignment or dislocation.
== END 2025-01-31 23:59 | disposition home or self-care (01) ==
LOC: RAD 12:54
PROVIDERS: PCP Nurse Practitioner; Visit Provider Nurse Practitioner
DX: S39.92XA Unspecified injury of lower back, initial encounter (principal)
CPT/HCPCS: 72220